=== PATIENT | female | born 1980 | race Caucasian/White ===

== ENCOUNTER 2021-10-29 10:46 | Outpatient (CLI) | payer BC ==
[2021-10-29 12:29] LABS: CLARITY,URINE CLEAR (Clear); COLOR,URINE YELLOW (Yellow); GLUCOSE, URINE NEGATIVE (Neg); KETONES,URINE NEGATIVE (Neg); LEUKOCYTE ESTERASE ,URINE NEGATIVE (Neg); NITRITES, URINE NEGATIVE (Neg); OCCULT BLOOD,URINE TRACE-INTACT (Neg); PROTEIN,URINE NEGATIVE (Neg); UROBILINOGEN,URINE 0.2 E.U/dL (0.2-1.0)
[2021-10-29 12:32] LABS: UA COLLECTION TYPE CLN CATCH MIDSTREAM
[2021-10-29 12:36] LABS: BACTERIA,URINE FEW /HPF (Neg); MUCUS STRANDS NONE SEEN /LPF (Neg); RBC,URINE 0-2 /HPF (0-2); SQUAMOUS EPITHELIAL CELL,UR FEW /LPF (FEW); WBC,URINE 0-4 /HPF (0-4)
[2021-10-29 12:47] LABS: BASOPHILS % (AUTO) 0.4 % (0-1); EOSINOPHILS # (AUTO) 0.1 X10'3 (0-0.9); EOSINOPHILS % (AUTO) 1.5 % (0-6); HEMATOCRIT 38.2 % (35.0-45.0); HEMOGLOBIN 12.7 g/dl (12.0-16.0); LYMPHOCYTES # (AUTO) 1.7 X10'3 (1.1-4.8); LYMPHOCYTES % (AUTO) 22.1 % (21-51); MEAN CORPUSCULAR HEMOGLOBIN 30.3 PG (27.0-31.0); MEAN CORPUSCULAR HGB CONC 33.2 g/dL (33.0-36.5); MEAN CORPUSCULAR VOLUME 91.4 FL (78-98); MEAN PLATELET VOLUME 9.1 FL (7.4-10.4); MONOCYTES # (AUTO) 0.6 X10'3 (0-0.9); MONOCYTES % (AUTO) 7.6 % (2-12); NEUTROPHILS # (AUTO) 5.2 X10'3 (1.8-7.7); NEUTROPHILS % (AUTO) 68.4 % (42-75); PLATELET COUNT 218 X10'3 (140-440); RED BLOOD COUNT 4.18 X10'6 (4.20-5.60); RED CELL DISTRIBUTION WIDTH 13.4 % (11.5-14.5); WHITE BLOOD COUNT 7.6 X10'3 (4.5-11.0)
[2021-10-29 13:15] LABS: ALANINE AMINOTRANSFERASE 28 U/L (12-78); ALBUMIN 4.2 G/DL (3.4-5.0); ALKALINE PHOSPHATASE 32 IU/L (46-116); ANION GAP 8 (8-16); ASPARTATE AMINO TRANSFERASE 19 U/L (10-37); BILIRUBIN,TOTAL 0.3 MG/DL (0.1-1.0); BLOOD UREA NITROGEN 16 MG/DL (7-18); BUN/CREATININE RATIO 18.6 (6.6-38.0); CALCIUM 8.7 MG/DL (8.5-10.1); CHLORIDE 104 MMOL/L (99-107); CHOL/HDL RATIO 2.5 (0.00-4.99); CHOLESTEROL 216 MG/DL (0-200); CREATININE 0.86 MG/DL (0.40-0.90); GLUCOSE 77 MG/DL (70-104); HDL CHOLESTEROL 87 MG/DL (35-60); LDL CHOLESTEROL 102 MG/DL (50-100); POTASSIUM 3.9 MMOL/L (3.5-5.1); SODIUM 139 MMOL/L (135-145); TOTAL CARBON DIOXIDE 27.1 MMOL/L (24-32); TOTAL PROTEIN 8.5 G/DL (6.4-8.2); TRIGLYCERIDES 106 MG/DL (20-135); eGFR 73 ML/MIN
[2021-10-29 14:04] LABS: H PYLORI ANTIBODY NEGATIVE (Neg)
== END 2021-10-29 23:59 | disposition home or self-care (01) ==
LOC: LAB 10:46
PROVIDERS: ATTEND Family Medicine
DX: Z00.01 Encounter for general adult medical examination with abnormal findings (principal); K21.9 Gastro-esophageal reflux disease without esophagitis
CPT/HCPCS: 36415; 80053; 80061; 81001; 84439; 84443; 85025; 86677

== ENCOUNTER 2021-10-29 10:54 | Outpatient (CLI) | payer BC ==
[2021-10-29 13:11] LABS: HEMOGLOBIN A1C 5.4 % (4.5-6.2)
[2021-10-29 13:48] LABS: MAGNESIUM 1.9 MG/DL (1.5-2.4)
[2021-10-30 10:30] LABS: ANTINUCLEAR ANTIBODIES Negative (Negative)
== END 2021-10-29 23:59 | disposition home or self-care (01) ==
LOC: LAB 10:54
PROVIDERS: ATTEND Nurse Practitioner
DX: R53.83 Other fatigue (principal); E55.9 Vitamin D deficiency, unspecified; D64.9 Anemia, unspecified; E53.9 Vitamin B deficiency, unspecified; R79.0 Abnormal level of blood mineral; Z83.2 Family history of diseases of the blood and blood-forming organs and certain disorders involving the immune mechanism
CPT/HCPCS: 36415; 82306; 82607; 82746; 83036; 83735; 85651; 86038; 86140

== ENCOUNTER 2021-12-22 08:59 | Day surgery (SDC) | payer BC ==
[~2021-12-22] VITALS: Ht 157.5 cm; Wt 54.5 kg
[2021-12-22 09:07] VITALS: BP 109/63
[2021-12-22] MEDS ORDERED: LIDOcaine Viscous 15ml cup ONE (09:34)
[2021-12-22] MEDS ORDERED: fentaNYL/PF 50MCG/1 ML 2ML syringe ONE (09:34)
[2021-12-22] MEDS ORDERED: MIDAZolam 1 MG/ML 5ML VIAL ONE (09:34)
[2021-12-22] MEDS ORDERED: diphenhydrAMINE 50 mg/ml inj ONE (09:36)
[2021-12-22] MEDS ORDERED: PANT40TA54 PO (09:44)
[2021-12-22] MEDS ORDERED: FAMO-128 PO (09:44)
[2021-12-22 10:59] VITALS: BP 111/63
[2021-12-22 11:09] VITALS: BP 105/62
[2021-12-22 11:19] VITALS: BP 105/62
[2021-12-22 11:29] VITALS: BP 104/65
== END 2021-12-22 11:35 | disposition home or self-care (01) ==
LOC: GI LAB 08:59
PROVIDERS: ATTEND Internal Medicine Gastroenterology
DX: R12 Heartburn (principal); K21.9 Gastro-esophageal reflux disease without esophagitis; K29.50 Unspecified chronic gastritis without bleeding
CPT/HCPCS: 43239; 99152; J1200; J2250; J3010; J7030; Z7512; A4620

== ENCOUNTER 2022-06-30 05:26 | Day surgery (SDC) | payer BC ==
[2022-06-25 14:21] LABS: CLARITY,URINE CLEAR (Clear); GLUCOSE, URINE NEGATIVE (Neg); KETONES,URINE NEGATIVE (Neg); LEUKOCYTE ESTERASE ,URINE NEGATIVE (Neg); NITRITES, URINE NEGATIVE (Neg); OCCULT BLOOD,URINE MODERATE (Neg); PROTEIN,URINE NEGATIVE (Neg); UROBILINOGEN,URINE 0.2 E.U/dL (0.2-1.0)
[2022-06-25 14:21] LABS: BASOPHILS # (AUTO) 0.1 X10'3 (0-0.2); BASOPHILS % (AUTO) 0.7 % (0-1); EOSINOPHILS # (AUTO) 0.1 X10'3 (0-0.9); EOSINOPHILS % (AUTO) 1.7 % (0-6); LYMPHOCYTES # (AUTO) 1.9 X10'3 (1.1-4.8); LYMPHOCYTES % (AUTO) 22.2 % (21-51); MEAN CORPUSCULAR HEMOGLOBIN 30.3 PG (27.0-31.0); MEAN CORPUSCULAR HGB CONC 33.3 g/dL (33.0-36.5); MEAN CORPUSCULAR VOLUME 91.1 FL (78-98); MEAN PLATELET VOLUME 8.4 FL (7.4-10.4); MONOCYTES # (AUTO) 0.5 X10'3 (0-0.9); MONOCYTES % (AUTO) 6.4 % (2-12); NEUTROPHILS # (AUTO) 5.9 X10'3 (1.8-7.7); PRE OP HEMATOCRIT 38.4 % (35.0-45.0); PRE OP HEMOGLOBIN 12.8 g/dL (12.0-16.0); PRE OP PLATELET COUNT 226 X10'3 (140-440); RED BLOOD COUNT 4.21 X10'6 (4.20-5.60); RED CELL DISTRIBUTION WIDTH 12.8 % (11.5-14.5)
[2022-06-25 14:25] LABS: UA COLLECTION TYPE CLN CATCH MIDSTREAM
[2022-06-25 14:26] LABS: COLOR,URINE STRAW (Yellow)
[2022-06-25 14:27] LABS: BACTERIA,URINE FEW /HPF (Neg); MUCUS STRANDS NONE SEEN /LPF (Neg); RBC,URINE 0-2 /HPF (0-2); SQUAMOUS EPITHELIAL CELL,UR FEW /LPF (FEW); WBC,URINE 0-4 /HPF (0-4)
[2022-06-25 14:38] LABS: ALBUMIN 4.2 G/DL (3.4-5.0); ALKALINE PHOSPHATASE 39 IU/L (46-116); BLOOD UREA NITROGEN 9 MG/DL (7-18); CALCIUM 9.4 MG/DL (8.5-10.1); CHLORIDE 105 MMOL/L (99-107); PRE OP ALT 27 U/L (30-65); PRE OP ANION GAP 7 (8-16); PRE OP AST 22 U/L (10-37); PRE OP BILIRUB, TOTAL 0.3 MG/DL (0.0-1.0); PRE OP GLUCOSE 83 MG/DL (70-104); PRE OP SODIUM 141 MMOL/L (135-145); TOTAL CARBON DIOXIDE 28.8 MMOL/L (24-32); TOTAL PROTEIN 8.3 G/DL (6.4-8.2); eGFR 69 ML/MIN
[2022-06-25 14:40] LABS: PRE OP POTASSIUM 3.3 MMOL/L (3.4-5.1)
[~2022-06-30] VITALS: Ht 157.5 cm; Wt 54.4 kg
[2022-06-30] VITALS (16 sets, daily range): BP systolic 85–107; BP diastolic 48–80
[~2022-06-30 05:26] MED LIST: ASCO100T12 PO; CHOL400T57 PO; FAMO-128 PO; PANT40TA54 PO; VITA400T10 PO; ZINC100T2 PO; ringers solution, lacted 1,000 ML IV SCH
[2022-06-30] MEDS ORDERED: famotidine 20mg tablet PO ONE (05:30)
[2022-06-30] MEDS ORDERED: ceFAZolin inj. 2,000 MG in dextrose 5%-water 100 ML IV ONE (05:30)
[2022-06-30] MEDS ORDERED: labetalol 20mg/4ml (5mg/ml) syringe IV PRN (09:45)
[2022-06-30] MEDS ORDERED: acetaminophen 1,000mg/100ml IV 100 ML IV PRN (09:45)
[2022-06-30] MEDS ORDERED: morphine 4 MG/ML inj SYRINge IV PRN (09:45)
[2022-06-30] MEDS ORDERED: sevoflurane 250ml liquid IH ONE (09:45)
[2022-06-30] MEDS ORDERED: hydrALAZINE 20mg/ml inj. IV PRN (09:45)
[2022-06-30] MEDS ORDERED: ringers solution, lacted 1,000 ML IV SCH (09:45)
[2022-06-30] MEDS ORDERED: morphine 2 MG/ML inj. syringe IV PRN (09:45)
[2022-06-30] MEDS ORDERED: proCHLORperazine 10 MG/2 ml inj IV PRN (09:45)
[2022-06-30] MEDS ORDERED: meperidine/PF 25mg/ml syringe IV PRN ×3 (09:45)
[2022-06-30] MEDS ORDERED: ondansetron/PF 4mg/2ml inj IV PRN (09:45)
[2022-06-30] MEDS ORDERED: ketorolac trometh. 30mg/ml inj. IV ONE (09:45)
[2022-06-30] MEDS ORDERED: midazolam 1 mg/ML 2ml injection ONE (09:52)
[2022-06-30] MEDS ORDERED: fentaNYL/PF 50MCG/1 ML 2ML syringe ONE (09:55)
[2022-06-30] MEDS ORDERED: BUPIVAcaine/PF 2.5 mg/ml (0.25%) 30ml vial ONE (10:06)
[2022-06-30] MEDS ORDERED: ondansetron/PF 4mg/2ml inj ONE (10:21)
[2022-06-30] MEDS ORDERED: LIDOcaine 2% (20mg/ml) 5ml vial ONE (10:21)
[2022-06-30] MEDS ORDERED: propofol inj 20 ML IV ONE (10:21)
[2022-06-30] MEDS ORDERED: dexamethasone sod phosphate 4mg/ml inj. ONE (10:21)
--- NOTE | 2022-06-30 10:44 | NUR ---
Received from OR via [facility], accompanied by Anesthesiologist DR PADILLA and report given by Anesthesiologist AND ASSISTANT CASE MANAGER. PT VERY DROWSY, NO S/S OF DISTRESS/DISCOMFORT, [place] DRSG COVERING UMBILICUS CDI. Addendum: 06/30/22 at 1054 by Ledy Dunn RN Amended: Links added.
--- NOTE | 2022-06-30 12:03 | NUR ---
PT UP AND DRESSED GETTING READY TO BE D/C'D AND BECAME NAUSEATED. 4 MG ZOFRAN GIVEN W/250 ML BOLUS OF LR. Addendum: 06/30/22 at 1217 by Ledy Dunn RN Amended: Links added.
--- NOTE | 2022-06-30 12:44 | NUR ---
NAUSEA RESOLVED, BP BACK TO BASELINE. PAIN IS MILD AND PT DECLINES INTERVENTIONS AT THIS TIME. PT STATES SHE FEELS MUCH BETTER AND IS READY TO GO HOME. D/C INSTRUCTIONS GIVEN AND GONE OVER W/PT WHO VERBALIZED UNDERSTANDING. PT D/CD TO HOME VIA W/C TO PRIVATE VEHICLE W/O INCIDENT. Addendum: 06/30/22 at 1253 by Ledy Dunn RN Amended: Links added.
== END 2022-06-30 12:44 | disposition home or self-care (01) ==
LOC: PAS 05:26
PROVIDERS: ATTEND Surgery
DX: K42.0 Umbilical hernia with obstruction, without gangrene (principal); K21.9 Gastro-esophageal reflux disease without esophagitis; Z79.899 Other long term (current) drug therapy; Z98.890 Other specified postprocedural states
CPT/HCPCS: 36415; 49587; 80053; 81001; 82948; 85025; J0690; J1100; J2250; J2405; J2704; J3010; J3490; J7030; J7060; J7120; Z7506; Z7512; A4215; A4618; A6449; A7000

== ENCOUNTER 2022-11-25 10:17 | Outpatient (CLI) | payer BC ==
[~2022-11-25 10:17] MED LIST changes: -ringers solution, lacted 1,000 ML IV SCH
== END 2022-11-25 23:59 | disposition home or self-care (01) ==
LOC: LAB 10:17
PROVIDERS: ATTEND Nurse Practitioner Family
DX: J30.1 Allergic rhinitis due to pollen (principal)
CPT/HCPCS: 36415; 86003

== ENCOUNTER 2023-03-05 13:47 | Inpatient (IN) | payer BC ==
[~2023-03-05] VITALS: Ht 157.5 cm; Wt 51.0 kg
[2023-03-05] MEDS ORDERED: normal saline 1000ml 1,000 ML IV STA (14:11)
[2023-03-05] MEDS ORDERED: ondansetron/PF 4mg/2ml inj IV STA (14:11)
[2023-03-05] MEDS ORDERED: morphine 2 MG/ML inj. syringe IV STA (14:21)
[2023-03-05 14:26] LABS: EOSINOPHILS % (AUTO) 0 % (0-6); HEMATOCRIT 36.1 % (35.0-45.0); HEMOGLOBIN 11.8 g/dl (12.0-16.0); LYMPHOCYTES # (AUTO) 0.2 X10'3 (1.1-4.8); MONOCYTES # (AUTO) 0.3 X10'3 (0-0.9)
[2023-03-05 14:27] LABS: BASOPHILS % (AUTO) 0.3 % (0-1); MEAN CORPUSCULAR HEMOGLOBIN 30.2 PG (27.0-31.0); MEAN CORPUSCULAR HGB CONC 32.8 g/dL (33.0-36.5); MEAN CORPUSCULAR VOLUME 92.2 FL (78-98); MEAN PLATELET VOLUME 8.9 FL (7.4-10.4); MONOCYTES % (AUTO) 1.8 % (2-12); NEUTROPHILS # (AUTO) 15.4 X10'3 (1.8-7.7); NEUTROPHILS % (AUTO) 96.9 % (42-75); PLATELET COUNT 136 X10'3 (140-440); RED BLOOD COUNT 3.92 X10'6 (4.20-5.60); RED CELL DISTRIBUTION WIDTH 13.6 % (11.5-14.5); WHITE BLOOD COUNT 15.9 X10'3 (4.5-11.0)
[2023-03-05 14:41] LABS: ALANINE AMINOTRANSFERASE 30 U/L (12-78); ALBUMIN 3.5 G/DL (3.4-5.0); ALBUMIN/GLOBULIN RATIO 0.9 (1.1-1.5); ALKALINE PHOSPHATASE 41 IU/L (46-116); ANION GAP 11 (8-16); ASPARTATE AMINO TRANSFERASE 22 U/L (10-37); BILIRUBIN,TOTAL 0.9 MG/DL (0.1-1.0); BLOOD UREA NITROGEN 9 MG/DL (7-18); CALCIUM 8.8 MG/DL (8.5-10.1); CHLORIDE 101 MMOL/L (99-107); CREATININE 1.12 MG/DL (0.40-0.90); GLUCOSE 129 MG/DL (70-104); LIPASE < 50 U/L (73-393); POTASSIUM 3.4 MMOL/L (3.5-5.1); SODIUM 136 MMOL/L (135-145); TOTAL CARBON DIOXIDE 24.3 MMOL/L (24-32); TOTAL PROTEIN 7.3 G/DL (6.4-8.2); eGFR 54 ML/MIN
[2023-03-05] MEDS ORDERED: normal saline 1000ml 1,000 ML IV ONE ×2 (14:50)
[2023-03-05] MEDS ORDERED: LORazepam 2 mg/ml vial IV ONE (14:50)
[2023-03-05] MEDS ORDERED: morphine 4 MG/ML inj SYRINge IV ONE (14:50)
[2023-03-05] MEDS ORDERED: iohexol 350MG/ML 100ml bottle IV ONE (14:51)
[2023-03-05] MEDS ORDERED: azithromycin/NS 500mg/250ml 250 ML IV ONE (15:55)
[2023-03-05] MEDS ORDERED: CefTRIAXone 2gm/D5W 50ml BAG 50 ML IV ONE (16:00)
[2023-03-05] MEDS ORDERED: ipratropium/albuterol 3ml nebule NEB ONE (16:05)
[2023-03-05] MEDS ORDERED: albuterol 2.5 MG/3 ML nebule NEB ONE (16:05)
[2023-03-05] MEDS ORDERED: methylPREDNISolone sod succ 125mg/2ml vial IV ONE (16:10)
[2023-03-05] MEDS ORDERED: albuterol 2.5 MG/3 ML nebule NEB PRN (16:55)
[2023-03-05] MEDS ORDERED: magnesium 4gm in 100ml NS 100 ML IV PRN (16:55)
[2023-03-05] MEDS ORDERED: magnesium Cl slow-release 64mg tablet PO PRN (16:55)
[2023-03-05] MEDS ORDERED: magnesium 2GM in 50ml NS 50 ML IV PRN (16:55)
[2023-03-05] MEDS: normal saline 1000ml 1,000 ML IV SCH (16:55)
[2023-03-05] MEDS ORDERED: potassium Cl 20 mEq SR tablet PO PRN ×2 (16:55)
[2023-03-05] MEDS ORDERED: potassium Cl 40MEQ/1/2NS 520ml 520 ML IV PRN (16:55)
[2023-03-05] MEDS ORDERED: normal saline 500ml IV soln 1,000 ML IV ONE (18:05)
[2023-03-05 19:17] LABS: LACTATE DEHYDROGENASE 175 U/L (81-234)
[2023-03-05 19:19] LABS: ABG BASE EXCESS -9.2 mmol/L (-2.0-2.0); ABG HCO3 14.8 mmol/L (22.0-26.0); ABG OXYGEN SATURATION 89.7 % (94-97); ABG PCO2 (T) 26.8 mmHg (32.0-45.0); ABG PO2 (T) 59.6 mmHg (75.0-100.0); ALLEN'S TEST POSITIVE; FCOHb 0.3 % (0.0-3.9); FMetHb 0.4 % (0.0-1.5); FO2Hb 89.1 % (94-97); PATIENT TEMPERATURE 37.1; TOTAL HEMOGLOBIN 10.8 G/dl (12.0-16.0)
[2023-03-05] MEDS: enoxaparin 40mg/0.4ml syringe SQ SCH (20:09)
[2023-03-05] MEDS: morphine 2 MG/ML inj. syringe IV PRN (20:10)
[2023-03-05] MEDS: HYDROcodone/acetaminophen 5mg/325mg tablet PO PRN (20:10)
[2023-03-05] MEDS ORDERED: normal saline 1000ML IV soln IVB ONE (20:20)
[2023-03-05 22:50] LABS: URINE HCG NEGATIVE (NEG)
[2023-03-05 22:58] LABS: CLARITY,URINE CLEAR (Clear); COLOR,URINE YELLOW (Yellow); GLUCOSE, URINE NEGATIVE (Neg); KETONES,URINE TRACE mg/dl (Neg); LEUKOCYTE ESTERASE ,URINE NEGATIVE (Neg); NITRITES, URINE NEGATIVE (Neg); OCCULT BLOOD,URINE TRACE-INTACT (Neg); PROTEIN,URINE NEGATIVE (Neg); UROBILINOGEN,URINE 0.2 E.U/dL (0.2-1.0)
[2023-03-05 23:02] LABS: UA COLLECTION TYPE CLN CATCH MIDSTREAM
[2023-03-05 23:09] LABS: BACTERIA,URINE FEW /HPF (Neg); SQUAMOUS EPITHELIAL CELL,UR MANY /LPF (FEW); WBC,URINE 0-4 /HPF (0-4)
[2023-03-05 23:10] LABS: RBC,URINE 0-2 /HPF (0-2)
[2023-03-06] MEDS: morphine 2 MG/ML inj. syringe IV PRN ×2 (00:38→05:12)
[2023-03-06] MEDS: ondansetron/PF 4mg/2ml inj IV PRN (00:38)
[2023-03-06] MEDS: guaiFENesin/DM 10ml UD oral syrup PO PRN ×2 (00:44→22:25)
[2023-03-06] MEDS: NORepinephrine 8mg/ 250ml NS 250 ML IV SCH (02:35)
[2023-03-06 02:56] LABS: BASOPHILS % (AUTO) 0.1 % (0-1); EOSINOPHILS % (AUTO) 0 % (0-6); HEMATOCRIT 28.1 % (35.0-45.0); HEMOGLOBIN 9.1 g/dl (12.0-16.0); LYMPHOCYTES # (AUTO) 0.4 X10'3 (1.1-4.8); LYMPHOCYTES % (AUTO) 2.4 % (21-51); MEAN CORPUSCULAR HEMOGLOBIN 29.8 PG (27.0-31.0); MEAN CORPUSCULAR HGB CONC 32.5 g/dL (33.0-36.5); MEAN CORPUSCULAR VOLUME 91.8 FL (78-98); MEAN PLATELET VOLUME 9.2 FL (7.4-10.4); MONOCYTES # (AUTO) 0.4 X10'3 (0-0.9); MONOCYTES % (AUTO) 2.4 % (2-12); NEUTROPHILS # (AUTO) 14.6 X10'3 (1.8-7.7); NEUTROPHILS % (AUTO) 95.1 % (42-75); PLATELET COUNT 93 X10'3 (140-440); RED BLOOD COUNT 3.06 X10'6 (4.20-5.60); RED CELL DISTRIBUTION WIDTH 13.9 % (11.5-14.5); WHITE BLOOD COUNT 15.4 X10'3 (4.5-11.0)
[2023-03-06] MEDS: normal saline 1000ml 1,000 ML IV SCH ×4 (03:03→22:55)
[2023-03-06 03:11] LABS: ALANINE AMINOTRANSFERASE 17 U/L (12-78); ALBUMIN 2.1 G/DL (3.4-5.0); ALBUMIN/GLOBULIN RATIO 0.8 (1.1-1.5); ALKALINE PHOSPHATASE 15 IU/L (46-116); ANION GAP 15 (8-16); ASPARTATE AMINO TRANSFERASE 12 U/L (10-37); BILIRUBIN,TOTAL 0.3 MG/DL (0.1-1.0); BLOOD UREA NITROGEN 5 MG/DL (7-18); BUN/CREATININE RATIO 5.2 (10.0-20.0); CALCIUM 6.4 MG/DL (8.5-10.1); CHLORIDE 110 MMOL/L (99-107); CREATININE 0.96 MG/DL (0.40-0.90); GLUCOSE 167 MG/DL (70-104); POTASSIUM 3.1 MMOL/L (3.5-5.1); SODIUM 140 MMOL/L (135-145); TOTAL CARBON DIOXIDE 15.4 MMOL/L (24-32); TOTAL PROTEIN 4.9 G/DL (6.4-8.2); eGFR 64 ML/MIN
[2023-03-06 03:56] LABS: TOTAL CELLS COUNTED 100
[2023-03-06 03:57] LABS: ANISOCYTOSIS FEW; ELLIPTOCYTES FEW; PLATELET ESTIMATE DECREASED
[2023-03-06] MEDS: HYDROcodone/acetaminophen 5mg/325mg tablet PO PRN (04:36)
[2023-03-06] MEDS: acetaminophen 325mg tablet PO PRN ×2 (05:43→21:22)
--- NOTE | 2023-03-06 05:58 | NUR ---
pt placed on heated hi flow nasal cannula 20L at 50%
[2023-03-06] MEDS ORDERED: pantoprazole 40mg Tablet.DR PO SCH (07:30)
[2023-03-06] MEDS: pantoprazole 40mg Tablet.DR PO SCH (07:58)
[2023-03-06] MEDS: ketorolac trometh. 30mg/ml inj. IV PRN ×3 (09:13→22:25)
[2023-03-06 09:30] LABS: ALANINE AMINOTRANSFERASE 19 U/L (12-78); ALBUMIN 2.4 G/DL (3.4-5.0); ALBUMIN/GLOBULIN RATIO 0.7 (1.1-1.5); ALKALINE PHOSPHATASE 22 IU/L (46-116); ANION GAP 12 (8-16); ASPARTATE AMINO TRANSFERASE 15 U/L (10-37); BILIRUBIN,TOTAL 0.2 MG/DL (0.1-1.0); BLOOD UREA NITROGEN 7 MG/DL (7-18); BUN/CREATININE RATIO 7.1 (10.0-20.0); CALCIUM 7.6 MG/DL (8.5-10.1); CHLORIDE 109 MMOL/L (99-107); CREATININE 0.99 MG/DL (0.40-0.90); GLUCOSE 169 MG/DL (70-104); POTASSIUM 3.8 MMOL/L (3.5-5.1); SODIUM 139 MMOL/L (135-145); TOTAL CARBON DIOXIDE 18.5 MMOL/L (24-32); TOTAL PROTEIN 5.7 G/DL (6.4-8.2); eGFR 62 ML/MIN
[2023-03-06 09:33] LABS: BASOPHILS # (AUTO) 0.1 X10'3 (0-0.2); BASOPHILS % (AUTO) 0.2 % (0-1); EOSINOPHILS % (AUTO) 0.1 % (0-6); HEMATOCRIT 31.9 % (35.0-45.0); HEMOGLOBIN 10.6 g/dl (12.0-16.0); LYMPHOCYTES # (AUTO) 0.5 X10'3 (1.1-4.8); LYMPHOCYTES % (AUTO) 1.9 % (21-51); MEAN CORPUSCULAR HEMOGLOBIN 30.2 PG (27.0-31.0); MEAN CORPUSCULAR HGB CONC 33.1 g/dL (33.0-36.5); MEAN CORPUSCULAR VOLUME 91.3 FL (78-98); MEAN PLATELET VOLUME 9.3 FL (7.4-10.4); MONOCYTES # (AUTO) 0.9 X10'3 (0-0.9); MONOCYTES % (AUTO) 3.5 % (2-12); NEUTROPHILS % (AUTO) 94.3 % (42-75); PLATELET COUNT 130 X10'3 (140-440); RED CELL DISTRIBUTION WIDTH 13.8 % (11.5-14.5)
[2023-03-06 09:38] LABS: WHITE BLOOD COUNT 26.6 X10'3 (4.5-11.0)
[2023-03-06] MEDS ORDERED: VANCOMYCIN 1,500MG inj. 1,500 MG in normal saline 500ml IV soln 300 ML IV ONE (09:50)
[2023-03-06] MEDS ORDERED: VANCOmycin 1250MG/NS 250ml Bag 250 ML IV ONE (10:05)
--- NOTE | 2023-03-06 14:36 | NUR ---
PT. C/O BACK DISCOMFORT OFFERED PAIN MEDS ORDERED BUT WANTS TO WAIT UNTIL TORADOL CAN BE GIVEN WHICH IS @ 9148
[2023-03-06] MEDS ORDERED: CefTRIAXone 2gm/D5W 50ml BAG 50 ML IV SCH (16:00)
[2023-03-06] MEDS ORDERED: azithromycin/NS 500mg/250ml 250 ML IV SCH (16:00)
[2023-03-06 18:00] VITALS: BP 95/60
[2023-03-06 19:00] VITALS: BP 92/58
[2023-03-06 20:00] VITALS: BP 101/62
[2023-03-06] MEDS ORDERED: famotidine 20mg tablet PO PRN ×2 (20:40→21:15)
[2023-03-06 21:00] VITALS: BP 109/64
[2023-03-06] MEDS: enoxaparin 40mg/0.4ml syringe SQ SCH (21:18)
[2023-03-06] MEDS: vancomycin/NS 1 GM ADD-VANTAGE 250 ML IV SCH (21:18)
[2023-03-06 22:00] VITALS: BP 112/55
[2023-03-06] MEDS ORDERED: VANCOMYCIN LEVEL IV ONE (22:30)
[2023-03-06 23:00] VITALS: BP 93/47
[2023-03-06] MEDS: CefTRIAXone 2gm/D5W 50ml BAG 50 ML IV SCH (23:52)
[2023-03-07] VITALS (19 sets, daily range): BP systolic 84–107; BP diastolic 7–75
[2023-03-07] MEDS: azithromycin/NS 500mg/250ml 250 ML IV SCH (00:50)
[2023-03-07] MEDS: normal saline 1000ml 1,000 ML IV SCH ×3 (00:50→07:27)
[2023-03-07] MEDS: morphine 2 MG/ML inj. syringe IV PRN ×3 (01:07→17:53)
[2023-03-07 03:08] LABS: BASOPHILS % (AUTO) 0.1 % (0-1); EOSINOPHILS % (AUTO) 0.1 % (0-6); HEMATOCRIT 29.5 % (35.0-45.0); HEMOGLOBIN 9.8 g/dl (12.0-16.0); LYMPHOCYTES # (AUTO) 0.7 X10'3 (1.1-4.8); LYMPHOCYTES % (AUTO) 4.1 % (21-51); MEAN CORPUSCULAR HEMOGLOBIN 30.1 PG (27.0-31.0); MEAN CORPUSCULAR HGB CONC 33.1 g/dL (33.0-36.5); MEAN CORPUSCULAR VOLUME 90.9 FL (78-98); MEAN PLATELET VOLUME 9.5 FL (7.4-10.4); MONOCYTES # (AUTO) 0.6 X10'3 (0-0.9); MONOCYTES % (AUTO) 3.3 % (2-12); NEUTROPHILS # (AUTO) 16.4 X10'3 (1.8-7.7); NEUTROPHILS % (AUTO) 92.4 % (42-75); PLATELET COUNT 113 X10'3 (140-440); RED BLOOD COUNT 3.25 X10'6 (4.20-5.60); RED CELL DISTRIBUTION WIDTH 14.3 % (11.5-14.5); WHITE BLOOD COUNT 17.7 X10'3 (4.5-11.0)
[2023-03-07 03:20] LABS: ALANINE AMINOTRANSFERASE 17 U/L (12-78); ALBUMIN/GLOBULIN RATIO 0.6 (1.1-1.5); ALKALINE PHOSPHATASE 28 IU/L (46-116); ANION GAP 9 (8-16); ASPARTATE AMINO TRANSFERASE 15 U/L (10-37); BILIRUBIN,TOTAL 0.2 MG/DL (0.1-1.0); BLOOD UREA NITROGEN 8 MG/DL (7-18); BUN/CREATININE RATIO 9.3 (10.0-20.0); CALCIUM 7.7 MG/DL (8.5-10.1); CHLORIDE 110 MMOL/L (99-107); CREATININE 0.86 MG/DL (0.40-0.90); GLUCOSE 97 MG/DL (70-104); POTASSIUM 3.7 MMOL/L (3.5-5.1); SODIUM 140 MMOL/L (135-145); TOTAL CARBON DIOXIDE 20.9 MMOL/L (24-32); TOTAL PROTEIN 5.3 G/DL (6.4-8.2); eGFR 73 ML/MIN
[2023-03-07] MEDS: guaiFENesin/DM 10ml UD oral syrup PO PRN ×2 (03:24→08:07)
[2023-03-07 04:05] LABS: PLATELET ESTIMATE DECREASED; TOTAL CELLS COUNTED 100
[2023-03-07 04:06] LABS: BURR CELLS 1+; POIKILOCYTOSIS FEW
[2023-03-07] MEDS: NORepinephrine 8mg/ 250ml NS 250 ML IV SCH (04:39)
--- NOTE | 2023-03-07 07:31 | NUR ---
medication re-assessments and administration not done by previous shift for the following Torodol re-assessment 03/06 1013 03/06 1734 Vanco administration 03/06 2230 NS administration 03/06 1255 03/06 2255 03/06 1650 03/07 0050
--- NOTE | 2023-03-07 07:31 | NUR ---
Patient in room ICU 2040. I have received report from Loan AVENDAÑO and had the opportunity to ask questions and assume patient care.
[2023-03-07] MEDS: pantoprazole 40mg Tablet.DR PO SCH (08:07)
[2023-03-07] MEDS: ketorolac trometh. 30mg/ml inj. IV PRN ×3 (08:14→20:51)
[2023-03-07] MEDS ORDERED: docusate sod 100mg capsule PO ONE (10:05)
[2023-03-07] MEDS: vancomycin/NS 1 GM ADD-VANTAGE 250 ML IV SCH (10:33)
[2023-03-07] MEDS: acetaminophen 325mg tablet PO PRN (10:33)
[2023-03-07] MEDS: HALLS - SOOTHE MENTHOL 1.8 MG cough drop LOZENGE MM PRN (10:33)
--- NOTE | 2023-03-07 10:54 | NUR ---
called Dr. Boyer due to vanco being D/C'ed with the current 10am dose running. He stated to stop the vanco and switch to zyvox
--- NOTE | 2023-03-07 11:22 | NUR ---
Initial: Pt admit DX severe sepsis, septic shock, RLL PNA, and acute respiratory failure per EMR. PO 25% first documented meal WB this AM; per at rounds this AM bringing food from outside which pt is eating so continuing to encourage outside foods. Pt initially requiring HFNC now down to 5L NC per EMR. LBM 03/07 to start stool softener for reported feelings of constipation per RN at rounds. Will monitor for further PO trends and nutrition intervention needs this admit. Rec: 1. continue regular diet; encourage PO- food from outside per pt preference 2. monitor PO trends for ONS needs 3. routine bowel care 4. scaled wt this admit; subsequent weekly wt Addendum: 03/07/23 at [address] Amended: Links added.
[2023-03-07] MEDS: linezolid 600mg/300ml PREMIX 300 ML IV SCH ×2 (11:47→20:52)
[2023-03-07] MEDS: ondansetron/PF 4mg/2ml inj IV PRN (17:08)
[2023-03-07] MEDS: HYDROcodone/acetaminophen 5mg/325mg tablet PO PRN (17:08)
--- NOTE | 2023-03-07 18:06 | NUR ---
Problems reprioritized. Patient report given, questions answered & plan of care reviewed with Loan AVENDAÑO.
--- NOTE | 2023-03-07 18:45 | NUR ---
Pt A/O in NAD, at bedside. Resp sl. labored with mild purse-lip breathing noted with speech and activity. VSS
--- NOTE | 2023-03-07 19:00 | NUR ---
Received report from software controls engineerKATERYNA Cates. Patient to follow shortly.
--- NOTE | 2023-03-07 19:02 | NUR ---
Report called to KATERYNA Muro on Tele. Opportunity for questions provided. All questions answered. Verbalizes understanding of info given.
--- NOTE | 2023-03-07 19:25 | NUR ---
Transferred to tele via WC with Tele monitor, RN, LONNIE, Madelyn and personal belongings.
--- NOTE | 2023-03-07 19:30 | NUR ---
Patient arrived to floor via bed from [facility] accompanied by her and all of patients belongings. A&O, in no pain or distress at this time.
[2023-03-07] MEDS: docusate sod 100mg capsule PO SCH (20:57)
[2023-03-07] MEDS: enoxaparin 40mg/0.4ml syringe SQ SCH (21:02)
[2023-03-07] MEDS ORDERED: VANCOMYCIN LEVEL IV ONE (21:30)
[2023-03-07] MEDS: temazepam 15mg capsule PO PRN (21:57)
[2023-03-07] MEDS: CefTRIAXone 2gm/D5W 50ml BAG 50 ML IV SCH (23:15)
[2023-03-08] VITALS (8 sets, daily range): BP systolic 90–98; BP diastolic 60–74
--- NOTE | 2023-03-08 | NUR ---
2nd set of VS taken around 2330. BP was lower at 84/51, HR 78. Also PIV to LAC infiltrated. New PIV started to RAC and 250 ml bolus infused. Retake of BP was 96/62, HR 83.
[2023-03-08] MEDS: HYDROcodone/acetaminophen 5mg/325mg tablet PO PRN ×3 (00:01→16:51)
[2023-03-08] MEDS: azithromycin/NS 500mg/250ml 250 ML IV SCH (00:49)
[2023-03-08] MEDS: ketorolac trometh. 30mg/ml inj. IV PRN ×4 (03:05→22:06)
[2023-03-08] MEDS: linezolid 600mg/300ml PREMIX 300 ML IV SCH ×2 (04:00→16:50)
--- NOTE | 2023-03-08 04:00 | NUR ---
Did not administer the 0400 dose of zyvox as the previous bag had only just recently finished infusing d/t infiltration and other Abx to give.
[2023-03-08 06:19] LABS: BASOPHILS % (AUTO) 0.1 % (0-1); EOSINOPHILS # (AUTO) 0.1 X10'3 (0-0.9); EOSINOPHILS % (AUTO) 0.3 % (0-6); HEMATOCRIT 29.8 % (35.0-45.0); HEMOGLOBIN 9.7 g/dl (12.0-16.0); LYMPHOCYTES # (AUTO) 0.8 X10'3 (1.1-4.8); LYMPHOCYTES % (AUTO) 4.2 % (21-51); MEAN CORPUSCULAR HEMOGLOBIN 29.6 PG (27.0-31.0); MEAN CORPUSCULAR HGB CONC 32.6 g/dL (33.0-36.5); MEAN CORPUSCULAR VOLUME 90.7 FL (78-98); MEAN PLATELET VOLUME 8.9 FL (7.4-10.4); MONOCYTES # (AUTO) 1.1 X10'3 (0-0.9); MONOCYTES % (AUTO) 5.5 % (2-12); NEUTROPHILS # (AUTO) 17.5 X10'3 (1.8-7.7); NEUTROPHILS % (AUTO) 89.9 % (42-75); PLATELET COUNT 137 X10'3 (140-440); RED BLOOD COUNT 3.28 X10'6 (4.20-5.60); RED CELL DISTRIBUTION WIDTH 14.3 % (11.5-14.5); WHITE BLOOD COUNT 19.4 X10'3 (4.5-11.0)
[2023-03-08 06:50] LABS: ALANINE AMINOTRANSFERASE 16 U/L (12-78); ALBUMIN 1.8 G/DL (3.4-5.0); ALBUMIN/GLOBULIN RATIO 0.5 (1.1-1.5); ALKALINE PHOSPHATASE 51 IU/L (46-116); ANION GAP 8 (8-16); ASPARTATE AMINO TRANSFERASE 17 U/L (10-37); BILIRUBIN,TOTAL 0.1 MG/DL (0.1-1.0); BLOOD UREA NITROGEN 9 MG/DL (7-18); BUN/CREATININE RATIO 11.4 (10.0-20.0); CALCIUM 7.9 MG/DL (8.5-10.1); CHLORIDE 106 MMOL/L (99-107); CREATININE 0.79 MG/DL (0.40-0.90); GLUCOSE 92 MG/DL (70-104); POTASSIUM 3.5 MMOL/L (3.5-5.1); SODIUM 136 MMOL/L (135-145); TOTAL PROTEIN 5.4 G/DL (6.4-8.2); eGFR 81 ML/MIN
--- NOTE | 2023-03-08 06:50 | NUR ---
Problems reprioritized. Patient report given, questions answered & plan of care reviewed with Angi AVENDAÑO.
--- NOTE | 2023-03-08 06:56 | NUR ---
Patient in room PCU 3021. I have received report from katerin ramirez and had the opportunity to ask questions and assume patient care.
[2023-03-08] MEDS: docusate sod 100mg capsule PO SCH ×2 (08:51→22:04)
[2023-03-08] MEDS: pantoprazole 40mg Tablet.DR PO SCH (08:51)
[2023-03-08] MEDS ORDERED: furosemide 20MG tablet PO ONE ×2 (09:45→16:40)
[2023-03-08] MEDS ORDERED: iohexol 300mg/ml 100ml inj. ONE (10:11)
--- NOTE | 2023-03-08 14:43 | NUR ---
PER DR BRYAN HOLD LASIX UNTIL BP COMES UP, RECHECK AT 1600 AND CALL HIM WITH RESULTS
--- NOTE | 2023-03-08 16:38 | NUR ---
NOTIFIED DR BRYAN RE: BP 98/66. HE STATES TO DECREASE LASIX TO 10MG AND GIVE ONE TIME DOSE.
[2023-03-08] MEDS: ondansetron/PF 4mg/2ml inj IV PRN (18:40)
--- NOTE | 2023-03-08 18:45 | NUR ---
Problems reprioritized. Patient report given, questions answered & plan of care reviewed with JAY AVENDAÑO.
--- NOTE | 2023-03-08 18:47 | NUR ---
Patient in room PCU 3021. I have received report from Angi AVENDAÑO and had the opportunity to ask questions and assume patient care.
[2023-03-08] MEDS: morphine 2 MG/ML inj. syringe IV PRN (18:57)
[2023-03-08] MEDS: temazepam 15mg capsule PO PRN (22:05)
[2023-03-08] MEDS: enoxaparin 40mg/0.4ml syringe SQ SCH (22:05)
[2023-03-08] MEDS: guaiFENesin/DM 10ml UD oral syrup PO PRN ×2 (22:15)
[2023-03-09] MEDS: CefTRIAXone 2gm/D5W 50ml BAG 50 ML IV SCH (00:14)
[2023-03-09] MEDS: azithromycin/NS 500mg/250ml 250 ML IV SCH (00:50)
[2023-03-09] MEDS: linezolid 600mg/300ml PREMIX 300 ML IV SCH ×2 (04:15→16:00)
[2023-03-09 04:30] VITALS: BP 102/65
[2023-03-09] MEDS: ketorolac trometh. 30mg/ml inj. IV PRN ×2 (04:54→11:10)
[2023-03-09] MEDS: guaiFENesin/DM 10ml UD oral syrup PO PRN (04:54)
[2023-03-09 06:06] VITALS: BP 105/57
--- NOTE | 2023-03-09 06:50 | NUR ---
Problems reprioritized. Patient report given, questions answered & plan of care reviewed with Paulo Carrero.
[2023-03-09] MEDS ORDERED: furosemide 20MG tablet PO ONE ×3 (08:10→10:25)
[2023-03-09 09:25] LABS: BASOPHILS % (AUTO) 0.1 % (0-1); EOSINOPHILS # (AUTO) 0.1 X10'3 (0-0.9); EOSINOPHILS % (AUTO) 0.7 % (0-6); HEMATOCRIT 29.7 % (35.0-45.0); HEMOGLOBIN 9.8 g/dl (12.0-16.0); LYMPHOCYTES # (AUTO) 0.8 X10'3 (1.1-4.8); LYMPHOCYTES % (AUTO) 7.5 % (21-51); MEAN CORPUSCULAR HEMOGLOBIN 29.8 PG (27.0-31.0); MEAN CORPUSCULAR HGB CONC 33.1 g/dL (33.0-36.5); MEAN CORPUSCULAR VOLUME 90.1 FL (78-98); MEAN PLATELET VOLUME 8.5 FL (7.4-10.4); MONOCYTES # (AUTO) 0.9 X10'3 (0-0.9); MONOCYTES % (AUTO) 8.3 % (2-12); NEUTROPHILS # (AUTO) 9.4 X10'3 (1.8-7.7); NEUTROPHILS % (AUTO) 83.4 % (42-75); PLATELET COUNT 165 X10'3 (140-440); RED CELL DISTRIBUTION WIDTH 14.3 % (11.5-14.5); WHITE BLOOD COUNT 11.3 X10'3 (4.5-11.0)
[2023-03-09 09:42] LABS: ALANINE AMINOTRANSFERASE 12 U/L (12-78); ALBUMIN 1.8 G/DL (3.4-5.0); ALBUMIN/GLOBULIN RATIO 0.5 (1.1-1.5); ALKALINE PHOSPHATASE 46 IU/L (46-116); ANION GAP 6 (8-16); ASPARTATE AMINO TRANSFERASE 19 U/L (10-37); BILIRUBIN,TOTAL 0.2 MG/DL (0.1-1.0); BLOOD UREA NITROGEN 6 MG/DL (7-18); BUN/CREATININE RATIO 7.8 (10.0-20.0); CALCIUM 8.3 MG/DL (8.5-10.1); CHLORIDE 106 MMOL/L (99-107); CREATININE 0.77 MG/DL (0.40-0.90); GLUCOSE 101 MG/DL (70-104); POTASSIUM 3.1 MMOL/L (3.5-5.1); SODIUM 138 MMOL/L (135-145); TOTAL CARBON DIOXIDE 26.5 MMOL/L (24-32); TOTAL PROTEIN 5.6 G/DL (6.4-8.2); eGFR 83 ML/MIN
[2023-03-09] MEDS: pantoprazole 40mg Tablet.DR PO SCH (09:53)
[2023-03-09] MEDS: morphine 2 MG/ML inj. syringe IV PRN (09:53)
[2023-03-09] MEDS: docusate sod 100mg capsule PO SCH ×2 (09:53→23:04)
[2023-03-09] MEDS: LIDOcaine 5% patch TP SCH (10:02)
[2023-03-09 10:18] LABS: PLATELET ESTIMATE NORMAL; TOTAL CELLS COUNTED 100
[2023-03-09 10:20] LABS: ELLIPTOCYTES FEW
[2023-03-09] MEDS ORDERED: potassium Cl 20 mEq SR tablet PO PRN ×3 (10:20→10:30)
[2023-03-09] MEDS ORDERED: magnesium 2GM in 50ml NS 50 ML IV PRN (10:20)
[2023-03-09] MEDS ORDERED: magnesium 4gm in 100ml NS 100 ML IV PRN (10:20)
[2023-03-09] MEDS ORDERED: magnesium Cl slow-release 64mg tablet PO PRN ×2 (10:20→10:30)
[2023-03-09] MEDS ORDERED: potassium Cl 40MEQ/1/2NS 520ml 520 ML IV PRN (10:20)
[2023-03-09] MEDS: potassium Cl 20 mEq SR tablet PO PRN ×3 (11:09→23:04)
[2023-03-09 11:11] VITALS: BP 105/62
[2023-03-09] MEDS: ondansetron/PF 4mg/2ml inj IV PRN (11:12)
[2023-03-09] MEDS: cyclobenzaprine 10mg tablet PO PRN ×2 (13:28→23:04)
[2023-03-09] MEDS: HYDROmorphone 1 mg/ml syringe IV PRN ×3 (13:28→23:05)
--- NOTE | 2023-03-09 14:22 | NUR ---
Per EMR pt receiving IV Linezolid. While heading to see patient RN requested RD not wake pt up if she was sleeping. Upon arrival to the room pt had an eye mask on though verbally requested RD come back at another time. Written low tyramine nutrition therapy education with RD contact information provided to patient's SO. Will f/u at another time for verbal education and to inquire about food preferences in hopes of optimizing PO intake as pt documented to be refusing all meals with the exception of 25% PO intake of first meal (breakfast 03/07). Per verbal d/w RN patient is in a ton of back pain, which is likely impacting PO intake. Per EMR pt documented with 05/08 pain. Will continue to follow closely. Addendum: 03/09/23 at [address] Amended: Links added.
--- NOTE | 2023-03-09 15:42 | NUR ---
PT 1515 VITAL SIGNS NOT TAKEN PT FINALLY GOT TO SLEEP.
[2023-03-09 18:00] VITALS: BP 96/60
--- NOTE | 2023-03-09 18:00 | NUR ---
Patient in room PCU 3021. I have received report from Paulo AVENDAÑO and had the opportunity to ask questions and assume patient care.
[2023-03-09] MEDS: acetaminophen 325mg tablet PO PRN (19:10)
[2023-03-09] MEDS: HYDROcodone/acetaminophen 5mg/325mg tablet PO PRN (19:10)
[2023-03-09] MEDS: K and/or MAG REPLACEMENT MC SCH (20:00)
[2023-03-09] MEDS: HYDROmorphone inj. 0.5 MG/0.5 ML DISP.SYRIN IV PRN (20:14)
[2023-03-09 22:00] VITALS: BP 105/60
[2023-03-09] MEDS: enoxaparin 40mg/0.4ml syringe SQ SCH (23:04)
[2023-03-10] MEDS ORDERED: azithromycin 250mg tablet PO SCH
[2023-03-10 02:00] VITALS: BP 98/60
[2023-03-10] MEDS: temazepam 15mg capsule PO PRN (02:28)
[2023-03-10] MEDS: CefTRIAXone 2gm/D5W 50ml BAG 50 ML IV SCH (02:31)
[2023-03-10] MEDS: linezolid 600mg/300ml PREMIX 300 ML IV SCH ×2 (04:59→16:53)
[2023-03-10 06:00] VITALS: BP 118/66
[2023-03-10 06:52] LABS: ALANINE AMINOTRANSFERASE 26 U/L (12-78); ALBUMIN 1.7 G/DL (3.4-5.0); ALBUMIN/GLOBULIN RATIO 0.4 (1.1-1.5); ALKALINE PHOSPHATASE 53 IU/L (46-116); ANION GAP 7 (8-16); ASPARTATE AMINO TRANSFERASE 33 U/L (10-37); BILIRUBIN,TOTAL 0.2 MG/DL (0.1-1.0); BLOOD UREA NITROGEN 7 MG/DL (7-18); BUN/CREATININE RATIO 8.9 (10.0-20.0); CALCIUM 8.2 MG/DL (8.5-10.1); CHLORIDE 103 MMOL/L (99-107); CREATININE 0.79 MG/DL (0.40-0.90); GLUCOSE 110 MG/DL (70-104); POTASSIUM 3.7 MMOL/L (3.5-5.1); SODIUM 136 MMOL/L (135-145); TOTAL CARBON DIOXIDE 26.2 MMOL/L (24-32); TOTAL PROTEIN 5.7 G/DL (6.4-8.2); eGFR 81 ML/MIN
--- NOTE | 2023-03-10 06:57 | NUR ---
Problems reprioritized. Patient report given, questions answered & plan of care reviewed with Lourdes AVENDAÑO.
[2023-03-10 07:04] LABS: BASOPHILS % (AUTO) 0.1 % (0-1); EOSINOPHILS # (AUTO) 0.2 X10'3 (0-0.9); EOSINOPHILS % (AUTO) 2.1 % (0-6); HEMATOCRIT 28.4 % (35.0-45.0); HEMOGLOBIN 9.3 g/dl (12.0-16.0); LYMPHOCYTES # (AUTO) 0.9 X10'3 (1.1-4.8); LYMPHOCYTES % (AUTO) 9.8 % (21-51); MEAN CORPUSCULAR HEMOGLOBIN 30.2 PG (27.0-31.0); MEAN CORPUSCULAR HGB CONC 32.6 g/dL (33.0-36.5); MEAN CORPUSCULAR VOLUME 92.5 FL (78-98); MEAN PLATELET VOLUME 8.4 FL (7.4-10.4); MONOCYTES # (AUTO) 0.8 X10'3 (0-0.9); MONOCYTES % (AUTO) 9.6 % (2-12); NEUTROPHILS # (AUTO) 6.9 X10'3 (1.8-7.7); NEUTROPHILS % (AUTO) 78.4 % (42-75); PLATELET COUNT 164 X10'3 (140-440); RED BLOOD COUNT 3.07 X10'6 (4.20-5.60); RED CELL DISTRIBUTION WIDTH 14.9 % (11.5-14.5); WHITE BLOOD COUNT 8.8 X10'3 (4.5-11.0)
[2023-03-10] MEDS: HYDROmorphone 1 mg/ml syringe IV PRN (07:25)
[2023-03-10] MEDS ORDERED: furosemide 20MG tablet PO SCH (08:00)
[2023-03-10] MEDS: LIDOcaine 5% patch TP SCH (08:00)
[2023-03-10] MEDS: K and/or MAG REPLACEMENT MC SCH ×2 (08:00→20:00)
[2023-03-10 08:04] LABS: TOTAL CELLS COUNTED 100
[2023-03-10 08:06] LABS: PLATELET ESTIMATE NORMAL
[2023-03-10 08:07] LABS: BURR CELLS 1+; ELLIPTOCYTES FEW; LARGE PLATELETS FEW
[2023-03-10] MEDS: docusate sod 100mg capsule PO SCH ×2 (08:59→09:01)
[2023-03-10] MEDS: pantoprazole 40mg Tablet.DR PO SCH ×2 (08:59→09:01)
[2023-03-10] MEDS: cyclobenzaprine 10mg tablet PO PRN ×3 (08:59→22:23)
[2023-03-10] MEDS ORDERED: furosemide inj 1,000 MG in normal saline 250ml IV soln 150 ML IV SCH (10:10)
[2023-03-10 11:00] VITALS: BP 111/67
[2023-03-10] MEDS: furosemide inj 100 MG in normal saline 100ml IV soln 90 ML IV SCH (12:38)
[2023-03-10] MEDS: oxyCODONE/APAP 10/325mg tablet PO PRN (13:01)
[2023-03-10 15:00] VITALS: BP 117/61
[2023-03-10] MEDS ORDERED: furosemide 20 MG/2 ML vial IV SCH (15:00)
--- NOTE | 2023-03-10 16:23 | NUR ---
F/u 03/10: Pt now with resolved septic shock per EMR. Pt and present at bedside during time of visit. Provided verbal/ written low tryamine diet education to pt and . Pt currently on a regular diet eating minimally documented 25% x2 meals and 5 refusals. Pt reports not feeling well today and not having an appetite because she strongly dislikes the food here. States everything "taste off" especially the meat. Obtain food preferences such as no onions, no peppers, fresh fruit and hot tea with breakfast, a brandt smoothie for lunch, and an allergy to quinoa communicated with dietary. Pt also agreeable to Ensure Enlive TID, discussed with RN. Pt reports brings outside food such as starbucks drink or milk shake as pt request. LBM on 03/07 with routine bowel care per EMR. Pt already has RD contact information and encouraged pt to reach out for any nutrition questions or concerns. Will continue to follow. Recommendations: 1. Continue regular diet; encourage PO intake- food from outside per pt preference 2. Ensure Enlive chocolate TID; communicated with RN 3. [place] food preferences: fresh fruit and hot tea for breakfast, brandt smoothie for lunch 4. Routine bowel care 5. Scaled wt this admit; subsequent weekly scaled wts Addendum: 03/10/23 at 1623 by Kateryna Rosenbaum Intern RD Amended: Links added. Addendum: 03/10/23 at [address] RD I have reviewed and agree with note.
[2023-03-10] MEDS: HYDROmorphone inj. 0.5 MG/0.5 ML DISP.SYRIN IV PRN ×2 (16:55→22:23)
[2023-03-10 18:00] VITALS: BP 105/67
[2023-03-10] MEDS: albuterol 2.5 MG/3 ML nebule NEB SCH ×2 (19:05→23:31)
[2023-03-10] MEDS: oxyCODONE/APAP 5-325mg tablet PO PRN (19:52)
[2023-03-10] MEDS: enoxaparin 40mg/0.4ml syringe SQ SCH (19:53)
[2023-03-10 22:00] VITALS: BP 110/73
[2023-03-11] MEDS: CefTRIAXone 2gm/D5W 50ml BAG 50 ML IV SCH
--- NOTE | 2023-03-11 00:30 | NUR ---
IV INFILTRATED, COULD NOT ADMINISTER ANTIBIOTIC
[2023-03-11] MEDS: temazepam 15mg capsule PO PRN (02:42)
[2023-03-11] MEDS: oxyCODONE/APAP 10/325mg tablet PO PRN ×4 (03:51→21:30)
[2023-03-11] MEDS: guaiFENesin/DM 10ml UD oral syrup PO PRN ×2 (04:01→21:59)
[2023-03-11] MEDS: linezolid 600mg/300ml PREMIX 300 ML IV SCH (05:56)
[2023-03-11 06:06] VITALS: BP 92/59
[2023-03-11] MEDS: albuterol 2.5 MG/3 ML nebule NEB SCH ×5 (07:36→22:40)
[2023-03-11 07:59] LABS: BASOPHILS % (AUTO) 0.2 % (0-1); EOSINOPHILS # (AUTO) 0.1 X10'3 (0-0.9); EOSINOPHILS % (AUTO) 1.1 % (0-6); HEMATOCRIT 26.2 % (35.0-45.0); HEMOGLOBIN 8.6 g/dl (12.0-16.0); LYMPHOCYTES % (AUTO) 8.6 % (21-51); MEAN CORPUSCULAR HEMOGLOBIN 29.7 PG (27.0-31.0); MEAN PLATELET VOLUME 7.9 FL (7.4-10.4); MONOCYTES # (AUTO) 0.7 X10'3 (0-0.9); MONOCYTES % (AUTO) 6.2 % (2-12); NEUTROPHILS # (AUTO) 9.4 X10'3 (1.8-7.7); NEUTROPHILS % (AUTO) 83.9 % (42-75); PLATELET COUNT 208 X10'3 (140-440); RED BLOOD COUNT 2.91 X10'6 (4.20-5.60); WHITE BLOOD COUNT 11.2 X10'3 (4.5-11.0)
[2023-03-11 08:30] LABS: ALBUMIN 1.7 G/DL (3.4-5.0); ALBUMIN/GLOBULIN RATIO 0.4 (1.1-1.5); ANION GAP 8 (8-16); ASPARTATE AMINO TRANSFERASE 29 U/L (10-37); BILIRUBIN,TOTAL 0.2 MG/DL (0.1-1.0); BLOOD UREA NITROGEN 4 MG/DL (7-18); BUN/CREATININE RATIO 5.4 (10.0-20.0); CALCIUM 8.2 MG/DL (8.5-10.1); CHLORIDE 100 MMOL/L (99-107); CREATININE 0.74 MG/DL (0.40-0.90); GLUCOSE 123 MG/DL (70-104); MAGNESIUM 1.9 MG/DL (1.5-2.4); POTASSIUM 3.3 MMOL/L (3.5-5.1); SODIUM 137 MMOL/L (135-145); TOTAL PROTEIN 5.7 G/DL (6.4-8.2); eGFR 87 ML/MIN
[2023-03-11 08:31] LABS: ALANINE AMINOTRANSFERASE 27 U/L (12-78); ALKALINE PHOSPHATASE 62 IU/L (46-116)
[2023-03-11 08:47] LABS: PLATELET ESTIMATE NORMAL; TOTAL CELLS COUNTED 100
[2023-03-11] MEDS: K and/or MAG REPLACEMENT MC SCH ×2 (09:09→20:00)
[2023-03-11] MEDS: docusate sod 100mg capsule PO SCH ×2 (09:25→21:16)
[2023-03-11] MEDS: LIDOcaine 5% patch TP SCH (09:25)
[2023-03-11] MEDS: potassium Cl 20 mEq SR tablet PO PRN ×3 (09:25→21:30)
[2023-03-11] MEDS: magnesium hydroxide 30ml (MOM) UD suspension PO PRN (09:31)
[2023-03-11] MEDS: cyclobenzaprine 10mg tablet PO PRN (13:37)
[2023-03-11] MEDS: ondansetron/PF 4mg/2ml inj IV PRN (14:53)
[2023-03-11] MEDS: linezolid 600mg tablet PO SCH (15:46)
[2023-03-11 18:00] VITALS: BP 98/63
--- NOTE | 2023-03-11 18:44 | NUR ---
Patient in room PCU 3021. I have received report from Paulo AVENDAÑO and had the opportunity to ask questions and assume patient care.
[2023-03-11] MEDS: HYDROmorphone 1 mg/ml syringe IV PRN (19:21)
[2023-03-11] MEDS ORDERED: calcium carbonate 500mg chew tablet PO PRN (19:45)
[2023-03-11] MEDS ORDERED: famotidine 20mg tablet PO ONE (19:45)
[2023-03-11] MEDS: enoxaparin 40mg/0.4ml syringe SQ SCH (21:17)
[2023-03-11 22:00] VITALS: BP 97/51
[2023-03-11] MEDS ORDERED: albuterol 2.5 MG/3 ML nebule NEB PRN (22:55)
[2023-03-12] MEDS: CefTRIAXone 2gm/D5W 50ml BAG 50 ML IV SCH (01:00)
[2023-03-12 02:00] VITALS: BP 99/62
[2023-03-12] MEDS: HYDROmorphone 1 mg/ml syringe IV PRN ×4 (02:25→17:05)
[2023-03-12] MEDS: oxyCODONE/APAP 10/325mg tablet PO PRN ×3 (04:37→14:36)
[2023-03-12] MEDS: linezolid 600mg tablet PO SCH ×2 (04:37→16:36)
[2023-03-12 06:00] VITALS: BP 107/6
--- NOTE | 2023-03-12 06:10 | NUR ---
Patient in room PCU 3021. I have received report from Chanel AVENDAÑO and had the opportunity to ask questions and assume patient care.Pt awake and alert, very concerned that she has cancer. at bedside. Reassured pt that CA is not a DX for her. Pt C/O pain, Dilaudid 1 mg IV given. Lasix Gtt infusing @ 2ml/hr. Addendum: 03/12/23 at 4083 by Christal Guillen RN Amended: Links added.
[2023-03-12] MEDS: furosemide inj 100 MG in normal saline 100ml IV soln 90 ML IV SCH (06:13)
[2023-03-12 07:04] LABS: BASOPHILS % (AUTO) 0.2 % (0-1); EOSINOPHILS # (AUTO) 0.4 X10'3 (0-0.9); EOSINOPHILS % (AUTO) 2.7 % (0-6); LYMPHOCYTES # (AUTO) 1.1 X10'3 (1.1-4.8); LYMPHOCYTES % (AUTO) 7.5 % (21-51); MEAN CORPUSCULAR HEMOGLOBIN 30.1 PG (27.0-31.0); MEAN CORPUSCULAR HGB CONC 33.4 g/dL (33.0-36.5); MEAN CORPUSCULAR VOLUME 90.3 FL (78-98); MEAN PLATELET VOLUME 7.4 FL (7.4-10.4); MONOCYTES # (AUTO) 0.5 X10'3 (0-0.9); MONOCYTES % (AUTO) 3.6 % (2-12); NEUTROPHILS # (AUTO) 12.3 X10'3 (1.8-7.7); PLATELET COUNT 251 X10'3 (140-440); RED BLOOD COUNT 2.99 X10'6 (4.20-5.60); RED CELL DISTRIBUTION WIDTH 14.1 % (11.5-14.5); WHITE BLOOD COUNT 14.3 X10'3 (4.5-11.0)
[2023-03-12 07:12] LABS: MAGNESIUM 2.2 MG/DL (1.5-2.4)
[2023-03-12] MEDS: albuterol 2.5 MG/3 ML nebule NEB SCH ×6 (07:25→23:00)
[2023-03-12 07:39] LABS: PLATELET ESTIMATE NORMAL; TOTAL CELLS COUNTED 100
[2023-03-12] MEDS: K and/or MAG REPLACEMENT MC SCH ×2 (08:00→19:24)
[2023-03-12] MEDS: magnesium hydroxide 30ml (MOM) UD suspension PO PRN (08:23)
[2023-03-12] MEDS: LIDOcaine 5% patch TP SCH (08:25)
[2023-03-12] MEDS: pantoprazole 40mg Tablet.DR PO SCH (08:25)
[2023-03-12] MEDS: docusate sod 100mg capsule PO SCH ×2 (08:25→20:54)
[2023-03-12] MEDS: POTASSIUM BICARB 20meq eff tab 20 MEQ TABLET.EFF PO SCH (08:28)
--- NOTE | 2023-03-12 09:12 | NUR ---
Problems reprioritized. Patient report given, questions answered & plan of care reviewed with Christal AVENDAÑO.
[2023-03-12 10:43] LABS: C-REACTIVE PROTEIN 32.64 MG/DL (0.0-0.5)
[2023-03-12 11:00] VITALS: BP 104/59
[2023-03-12] MEDS: sennosides 8.6mg tablet PO SCH ×2 (11:36→20:00)
--- NOTE | 2023-03-12 14:00 | NUR ---
Bladder scan of Pt bladder showed 7 ml of urine. Post void. No strait cath needed. Addendum: 03/12/23 at 1822 by Christal Guillen RN Amended: Links added.
[2023-03-12] MEDS: cyclobenzaprine 10mg tablet PO PRN (14:36)
[2023-03-12 15:00] VITALS: BP 104/60
--- NOTE | 2023-03-12 15:09 | NUR ---
PAGER ID: [phone] MESSAGE: [phone] Luis M. Confirming that it is ok to turn off Lasix Gtt for trip to MRI and CT Scan. Christal SIFUENTES. Dr burnett called back and lasix gtt will be turned off for scans.
[2023-03-12] MEDS ORDERED: iohexol 300mg/ml 100ml inj. ONE (15:23)
[2023-03-12] MEDS: HALLS - SOOTHE MENTHOL 1.8 MG cough drop LOZENGE MM PRN (16:36)
--- NOTE | 2023-03-12 17:24 | NUR ---
PAGER ID: [phone] MESSAGE: [phone] Asencio- CT and MRI reports up. Please review. Christal SIFUENTES
[2023-03-12 18:00] VITALS: BP 103/62
--- NOTE | 2023-03-12 18:18 | NUR ---
Problems reprioritized. Patient report given, questions answered & plan of care reviewed with Sujatha AVENDAÑO. at bedside. Pt up to bathroom. Addendum: 03/12/23 at 1820 by Christal Guillen RN Amended: Links added.
--- NOTE | 2023-03-12 18:24 | NUR ---
Patient in room PCU 3021. I have received report from Christal AVENDAÑO and had the opportunity to ask questions and assume patient care.
--- NOTE | 2023-03-12 19:00 | NUR ---
Dr. Boyer here to see patient. Test results discussed w/patient and spouse. RT at bedside.
[2023-03-12] MEDS ORDERED: methylnaltrexone br 12mg/0.6ml inj***SubQ only SQ PRN (19:35)
[2023-03-12] MEDS ORDERED: magnesium hydroxide 30ml (MOM) UD suspension PO PRN (19:35)
[2023-03-12] MEDS ORDERED: furosemide inj 100 MG in normal saline 100ml IV soln 90 ML IV SCH (19:55)
[2023-03-12] MEDS: acetylcysteine 200 MG/ml 4ml vial INH SCH (20:00)
[2023-03-12] MEDS: LORazepam 0.5 MG tablet PO PRN (20:54)
[2023-03-12] MEDS: oxyCODONE/APAP 5-325mg tablet PO PRN (20:55)
[2023-03-12] MEDS: enoxaparin 40mg/0.4ml syringe SQ SCH (20:56)
[2023-03-12 22:00] VITALS: BP 106/58
[2023-03-12] MEDS: HYDROmorphone inj. 0.5 MG/0.5 ML DISP.SYRIN IV PRN (22:35)
[2023-03-12] MEDS: temazepam 15mg capsule PO PRN (22:47)
[2023-03-12] MEDS ORDERED: acetylcysteine 200 MG/ml 4ml vial INH SCH (23:00)
[2023-03-13] VITALS (7 sets, daily range): BP systolic 93–109; BP diastolic 58–73
[2023-03-13] MEDS: CefTRIAXone 2gm/D5W 50ml BAG 50 ML IV SCH (00:57)
[2023-03-13] MEDS: LORazepam 0.5 MG tablet PO PRN (03:10)
[2023-03-13] MEDS: oxyCODONE/APAP 5-325mg tablet PO PRN ×3 (03:10→16:44)
[2023-03-13] MEDS: linezolid 600mg tablet PO SCH (04:23)
[2023-03-13] MEDS: HYDROmorphone inj. 0.5 MG/0.5 ML DISP.SYRIN IV PRN ×3 (04:24→19:44)
[2023-03-13 04:34] LABS: ANION GAP 8 (8-16); BLOOD UREA NITROGEN 5 MG/DL (7-18); CHLORIDE 94 MMOL/L (99-107); CREATININE 0.89 MG/DL (0.40-0.90); GLUCOSE 97 MG/DL (70-104); SODIUM 137 MMOL/L (135-145)
[2023-03-13 04:35] LABS: ALBUMIN 1.9 G/DL (3.4-5.0); BASOPHILS % (AUTO) 0.1 % (0-1); BUN/CREATININE RATIO 5.6 (10.0-20.0); CALCIUM 9.1 MG/DL (8.5-10.1); EOSINOPHILS # (AUTO) 0.4 X10'3 (0-0.9); EOSINOPHILS % (AUTO) 2.4 % (0-6); HEMATOCRIT 27.7 % (35.0-45.0); HEMOGLOBIN 9.1 g/dl (12.0-16.0); LYMPHOCYTES # (AUTO) 1.1 X10'3 (1.1-4.8); LYMPHOCYTES % (AUTO) 7.2 % (21-51); MAGNESIUM 2.4 MG/DL (1.5-2.4); MEAN CORPUSCULAR HEMOGLOBIN 29.6 PG (27.0-31.0); MEAN CORPUSCULAR VOLUME 89.8 FL (78-98); MEAN PLATELET VOLUME 7.7 FL (7.4-10.4); MONOCYTES # (AUTO) 0.4 X10'3 (0-0.9); MONOCYTES % (AUTO) 2.8 % (2-12); NEUTROPHILS # (AUTO) 13.6 X10'3 (1.8-7.7); NEUTROPHILS % (AUTO) 87.5 % (42-75); PLATELET COUNT 334 X10'3 (140-440); RED BLOOD COUNT 3.09 X10'6 (4.20-5.60); WHITE BLOOD COUNT 15.5 X10'3 (4.5-11.0); eGFR 70 ML/MIN
--- NOTE | 2023-03-13 07:07 | NUR ---
Problems reprioritized. Patient report given, questions answered & plan of care reviewed with Brenna AVENDAÑO.
--- NOTE | 2023-03-13 07:28 | NUR ---
Patient in room PCU 3021. I have received report from KATERYNA BAHENA, and had the opportunity to ask questions and assume patient care.
[2023-03-13] MEDS: docusate sod 100mg capsule PO SCH ×2 (08:00→19:37)
[2023-03-13] MEDS: K and/or MAG REPLACEMENT MC SCH ×2 (08:00→19:46)
[2023-03-13] MEDS: LIDOcaine 5% patch TP SCH (09:16)
[2023-03-13] MEDS: pantoprazole 40mg Tablet.DR PO SCH (09:16)
[2023-03-13] MEDS: POTASSIUM BICARB 20meq eff tab 20 MEQ TABLET.EFF PO SCH (09:16)
[2023-03-13] MEDS: sennosides 8.6mg tablet PO SCH ×2 (09:16→19:37)
[2023-03-13] MEDS: albuterol 2.5 MG/3 ML nebule NEB SCH ×5 (09:21→23:00)
[2023-03-13] MEDS: acetylcysteine 200 MG/ml 4ml vial INH SCH ×2 (09:22→19:07)
--- NOTE | 2023-03-13 09:57 | NUR ---
PAGE SENT PAGER ID: [phone] MESSAGE: [phone], MAUIRCIO RIDER, PT WAS UNABLE TO LAY FLAT FOR MRI YESTERDAY, SO MRI INCOMPLETE. PER PT DR. BRYAN SAID NO MORE MRI WAS NEEDED (LUMBAR IS YET TO BE DONE). DID YOU WANT THE LUMBAR? THANK YOU. YASMIN Wild [phone]
[2023-03-13] MEDS ORDERED: CLINDAMYCIN 600mg IN NS 50ML 50 ML IV SCH (11:37)
--- NOTE | 2023-03-13 12:31 | NUR ---
PAGE SENT PAGER ID: [phone] MESSAGE: [phone], MAURICIO RIDER, DIETARY IS RECOMMENDING ENSURE FOR NUTRITION D/T POOR APETITE. AN ORDER FOR ENSURE PLEASE? THANK YOU, YASMIN [phone]
--- NOTE | 2023-03-13 12:50 | NUR ---
F/u 03/13: Pt PO remains poor 0-25% vs refusing meals now day 8 continues to not meet nutrition needs. Prior 03/[address] recs for Ensure Enlive which were d/w RN if MD agreeable not in EMR; RD paged DO and d/w RN regarding ONS recs. Pt/SO seen by RD at bedside; pt reports continued low appetite though mouth has been quite dry since started on lasix making solid food intake difficult. Pt reports is bringing in home protein drinks and endorses knowing she'll have to receive majority of kcals/proteins via liquids. Pt is still agreeable to Ensure Enlive TIDWM; pending physician orders in EMR. Pt reports wants strawberries/grapes WB since doesn't like pineapple; dietary notified. Given poor nutrition intake 8 days, mild weakness, and BLE 2+ edema pt meets minimum non-severe malnutrition criteria- DO notified. LBM 03/12 receiving routine senna, colace, and PRN MoM 03/12 per EMR. Will monitor for further nutrition intervention needs this admit. Recommendations: 1. Continue regular diet; encourage PO intake- food from outside per pt preference 2. Ensure Enlive chocolate TID; communicated w/ DO and RN 3. [place] food preferences: fresh fruit and hot tea for breakfast, brandt smoothie for lunch 4. IF poor PO persists despite Ensure Enlive intervention consider NG for nutrition repletion given malnutrition status 5. Routine bowel care 6. Scaled wt this admit; subsequent weekly scaled wts Addendum: 03/13/23 at [address] Amended: Links added.
[2023-03-13] MEDS: furosemide 20 MG/2 ML vial IV SCH ×2 (13:00→21:59)
[2023-03-13] MEDS: HYDROmorphone 1 mg/ml syringe IV PRN (13:53)
[2023-03-13] MEDS: clindamycin 600mg/D5W 50ml 50 ML IV SCH (15:59)
[2023-03-13] MEDS: lactose-reduced food (Ensure Enlive) - 237ml bottle PO SCH (18:00)
[2023-03-13] MEDS ORDERED: NUT.TX.IMPAIRED DIGEST FXN (Ensure Clear) 237 ML PO SCH (18:00)
--- NOTE | 2023-03-13 18:59 | NUR ---
Problems reprioritized. Patient report given, questions answered & plan of care reviewed with KATERYNA CARPENTER.
[2023-03-13] MEDS: famotidine 20mg tablet PO SCH (19:37)
[2023-03-13] MEDS: enoxaparin 40mg/0.4ml syringe SQ SCH (19:38)
[2023-03-13] MEDS: temazepam 15mg capsule PO PRN (21:59)
[2023-03-14] VITALS (7 sets, daily range): BP systolic 94–115; BP diastolic 53–74
[2023-03-14] MEDS: HYDROmorphone 1 mg/ml syringe IV PRN ×4 (00:10→16:21)
[2023-03-14] MEDS: clindamycin 600mg/D5W 50ml 50 ML IV SCH ×3 (00:16→16:21)
[2023-03-14] MEDS: CefTRIAXone 2gm/D5W 50ml BAG 50 ML IV SCH ×2 (01:01→23:25)
[2023-03-14] MEDS: acetaminophen 325mg tablet PO PRN ×4 (03:23→21:40)
[2023-03-14 06:13] LABS: BASOPHILS % (AUTO) 0.2 % (0-1); EOSINOPHILS # (AUTO) 0.3 X10'3 (0-0.9); EOSINOPHILS % (AUTO) 1.9 % (0-6); HEMATOCRIT 25.8 % (35.0-45.0); HEMOGLOBIN 8.7 g/dl (12.0-16.0); LYMPHOCYTES # (AUTO) 1.1 X10'3 (1.1-4.8); LYMPHOCYTES % (AUTO) 6.4 % (21-51); MEAN CORPUSCULAR HEMOGLOBIN 30.2 PG (27.0-31.0); MEAN CORPUSCULAR HGB CONC 33.7 g/dL (33.0-36.5); MEAN CORPUSCULAR VOLUME 89.7 FL (78-98); MEAN PLATELET VOLUME 7.1 FL (7.4-10.4); MONOCYTES # (AUTO) 0.5 X10'3 (0-0.9); MONOCYTES % (AUTO) 3.1 % (2-12); NEUTROPHILS # (AUTO) 14.5 X10'3 (1.8-7.7); NEUTROPHILS % (AUTO) 88.4 % (42-75); PLATELET COUNT 392 X10'3 (140-440); RED BLOOD COUNT 2.87 X10'6 (4.20-5.60); RED CELL DISTRIBUTION WIDTH 14.2 % (11.5-14.5); WHITE BLOOD COUNT 16.4 X10'3 (4.5-11.0)
[2023-03-14 06:15] LABS: ALBUMIN 1.9 G/DL (3.4-5.0); ANION GAP 9 (8-16); BLOOD UREA NITROGEN 9 MG/DL (7-18); BUN/CREATININE RATIO 10.8 (10.0-20.0); CALCIUM 8.9 MG/DL (8.5-10.1); CHLORIDE 96 MMOL/L (99-107); CREATININE 0.83 MG/DL (0.40-0.90); GLUCOSE 105 MG/DL (70-104); SODIUM 137 MMOL/L (135-145); eGFR 76 ML/MIN
--- NOTE | 2023-03-14 06:33 | NUR ---
Problems reprioritized. Patient report given, questions answered & plan of care reviewed with Brenna.
--- NOTE | 2023-03-14 06:53 | NUR ---
Patient in room PCU 3021. I have received report from KATERYNA Davey, and had the opportunity to ask questions and assume patient care. Being assisted by CHIN Zuñiga, to shower.
[2023-03-14] MEDS: acetylcysteine 200 MG/ml 4ml vial INH SCH ×2 (07:15→19:56)
[2023-03-14] MEDS: albuterol 2.5 MG/3 ML nebule NEB SCH ×5 (07:15→23:00)
[2023-03-14] MEDS: K and/or MAG REPLACEMENT MC SCH ×2 (08:00→20:00)
[2023-03-14] MEDS: lactose-reduced food (Ensure Enlive) - 237ml bottle PO SCH ×3 (08:00→18:00)
[2023-03-14] MEDS: furosemide 20 MG/2 ML vial IV SCH ×2 (09:08→12:37)
[2023-03-14] MEDS: POTASSIUM BICARB 20meq eff tab 20 MEQ TABLET.EFF PO SCH (09:08)
[2023-03-14] MEDS: pantoprazole 40mg Tablet.DR PO SCH (09:15)
[2023-03-14] MEDS: docusate sod 100mg capsule PO SCH ×2 (09:15→20:35)
[2023-03-14] MEDS: famotidine 20mg tablet PO SCH ×2 (09:15→20:36)
[2023-03-14] MEDS: sennosides 8.6mg tablet PO SCH ×2 (09:16→20:35)
[2023-03-14] MEDS: LIDOcaine 5% patch TP SCH (09:16)
[2023-03-14] MEDS: oxyCODONE/APAP 5-325mg tablet PO PRN ×2 (11:53→20:35)
[2023-03-14 12:27] LABS: LIPASE 56 U/L (73-393)
[2023-03-14 13:18] LABS: BF RBC COUNT 4 /CU MM; BF WBC COUNT 93 /CU MM (0-1000); BFAPPEAR HAZY; BFCOLOR YELLOW; BFVOLUME 60 ML
[2023-03-14 13:19] LABS: LDH,BODY FLUID 126 U/L
[2023-03-14 13:29] LABS: TOTAL PROTEIN,BODY FLUID < 2.0 G/DL
[2023-03-14] MEDS: nystatin 500,000 unit/5ML UD oral suspension PO SCH ×2 (13:30→20:36)
[2023-03-14 14:14] LABS: EOSINOPHILS,BODY FLUID 1 %; LYMPHOCYTES,BODY FLUID 39 %; MONOCYTES,BODY FLUID 43 %; NEUTROPHILS,BODY FLUID 17 %
[2023-03-14 14:15] LABS: BF MESOTHELIAL CELLS FEW
--- NOTE | 2023-03-14 15:26 | NUR ---
PAGE SENT PAGER ID: [phone] MESSAGE: [phone], MAURICIO RIDER, US DONE: SUPERFICIAL THROMBUS LEFT CEPHALIC VEIN. THANK YOU, YASMIN, [phone]
[2023-03-14] MEDS ORDERED: SINCALIDE IV ONE (17:05)
[2023-03-14] MEDS ORDERED: NORMAL SALINE IV ONE (17:05)
[2023-03-14] MEDS ORDERED: iohexol 350MG/ML 100ml bottle IV ONE (17:14)
--- NOTE | 2023-03-14 19:00 | NUR ---
Problems reprioritized. Patient report given, questions answered & plan of care reviewed with KATERYNA CARPENTER.
[2023-03-14] MEDS ORDERED: apixaban 5mg tablet PO SCH (20:00)
[2023-03-14] MEDS: temazepam 15mg capsule PO PRN (21:14)
[2023-03-15] VITALS (9 sets, daily range): BP systolic 91–108; BP diastolic 52–63
[2023-03-15] MEDS: HYDROmorphone 1 mg/ml syringe IV PRN ×3 (00:15→16:37)
[2023-03-15] MEDS: clindamycin 600mg/D5W 50ml 50 ML IV SCH ×3 (00:20→15:57)
--- NOTE | 2023-03-15 06:26 | NUR ---
Problems reprioritized. Patient report given, questions answered & plan of care reviewed with Jessica.
--- NOTE | 2023-03-15 06:55 | NUR ---
Patient in room PCU 3021. I have received report from KATERYNA CARPENTER, and had the opportunity to ask questions and assume patient care.
[2023-03-15] MEDS: albuterol 2.5 MG/3 ML nebule NEB SCH ×5 (07:00→23:30)
[2023-03-15 07:18] LABS: BASOPHILS % (AUTO) 0.3 % (0-1); EOSINOPHILS # (AUTO) 0.2 X10'3 (0-0.9); EOSINOPHILS % (AUTO) 1.9 % (0-6); HEMATOCRIT 28.5 % (35.0-45.0); HEMOGLOBIN 9.4 g/dl (12.0-16.0); LYMPHOCYTES # (AUTO) 1.4 X10'3 (1.1-4.8); LYMPHOCYTES % (AUTO) 11.9 % (21-51); MEAN CORPUSCULAR HEMOGLOBIN 29.7 PG (27.0-31.0); MEAN CORPUSCULAR VOLUME 89.9 FL (78-98); MEAN PLATELET VOLUME 6.8 FL (7.4-10.4); MONOCYTES # (AUTO) 0.3 X10'3 (0-0.9); NEUTROPHILS # (AUTO) 9.6 X10'3 (1.8-7.7); NEUTROPHILS % (AUTO) 82.9 % (42-75); PLATELET COUNT 466 X10'3 (140-440); RED BLOOD COUNT 3.17 X10'6 (4.20-5.60); RED CELL DISTRIBUTION WIDTH 14.3 % (11.5-14.5); WHITE BLOOD COUNT 11.6 X10'3 (4.5-11.0)
[2023-03-15 07:29] LABS: ALBUMIN 2.2 G/DL (3.4-5.0); ANION GAP 8 (8-16); BLOOD UREA NITROGEN 11 MG/DL (7-18); BUN/CREATININE RATIO 12.9 (10.0-20.0); CALCIUM 9.2 MG/DL (8.5-10.1); CHLORIDE 97 MMOL/L (99-107); CREATININE 0.85 MG/DL (0.40-0.90); GLUCOSE 91 MG/DL (70-104); SODIUM 134 MMOL/L (135-145); TOTAL CARBON DIOXIDE 28.7 MMOL/L (24-32); eGFR 74 ML/MIN
[2023-03-15] MEDS: K and/or MAG REPLACEMENT MC SCH ×2 (08:00→19:59)
[2023-03-15] MEDS: lactose-reduced food (Ensure Enlive) - 237ml bottle PO SCH ×3 (08:00→18:00)
[2023-03-15] MEDS: docusate sod 100mg capsule PO SCH ×2 (08:17→20:03)
[2023-03-15] MEDS: POTASSIUM BICARB 20meq eff tab 20 MEQ TABLET.EFF PO SCH (08:17)
[2023-03-15] MEDS: LIDOcaine 5% patch TP SCH (08:17)
[2023-03-15] MEDS: sennosides 8.6mg tablet PO SCH ×2 (08:17→20:03)
[2023-03-15] MEDS: nystatin 500,000 unit/5ML UD oral suspension PO SCH ×3 (08:17→20:04)
[2023-03-15] MEDS: famotidine 20mg tablet PO SCH ×2 (08:17→20:03)
[2023-03-15] MEDS: furosemide 20 MG/2 ML vial IV SCH ×2 (08:18→20:07)
[2023-03-15] MEDS: pantoprazole 40mg Tablet.DR PO SCH (08:18)
[2023-03-15] MEDS: acetylcysteine 200 MG/ml 4ml vial INH SCH (08:18)
[2023-03-15] MEDS: oxyCODONE/APAP 5-325mg tablet PO PRN (08:24)
[2023-03-15] MEDS ORDERED: LIDOcaine 1% 30ml preserv. free vial ONE (12:28)
[2023-03-15] MEDS ORDERED: fentaNYL/PF 50MCG/1 ML 2ML syringe ONE (12:36)
[2023-03-15] MEDS ORDERED: midazolam 1 mg/ML 2ml injection ONE (12:36)
--- NOTE | 2023-03-15 14:42 | NUR ---
RT at bedside, Becca AVENDAÑO
--- NOTE | 2023-03-15 15:10 | NUR ---
Pt family at bedside. Pt given ice for back pain. Becca AVENDAÑO
--- NOTE | 2023-03-15 15:27 | NUR ---
Page Sent PAGER ID: [phone] MESSAGE: [phone] Callie Asencio, Pt expressed concern about lack of coverage for a fever. Pt requesting Advil. Please advise, thank you. Becca AVENDAÑO [phone]
[2023-03-15] MEDS ORDERED: ibuprofen tablet 400 MG TABLET PO PRN (15:30)
--- NOTE | 2023-03-15 15:31 | NUR ---
Dr Rios called and gave verbal order for Ibuprofen 600 mg, Q6 PRN for fever, Becca AVENDAÑO
--- NOTE | 2023-03-15 16:07 | NUR ---
Page Sent PAGER ID: [phone] MESSAGE: [phone] Luis M Ledesma. Pt concerned about pain coverage. Percocet was ineffective this morning. Pt is concerned about pain management upon discharge and finding meds that works before she leaves. Please advise, thank you. KATERYNA Hudson [phone]
[2023-03-15] MEDS ORDERED: HYDROcodone/acetaminophen 10/325mg tab PO PRN (16:15)
--- NOTE | 2023-03-15 16:18 | NUR ---
Dr Rios called. He will discontinue the order for Percocet and put in an order for Dunbar 10mg. KATERYNA Hudson
--- NOTE | 2023-03-15 18:36 | NUR ---
Problems reprioritized. Patient report given, questions answered & plan of care reviewed with KATERYNA CARPENTER.
[2023-03-15] MEDS: temazepam 15mg capsule PO PRN (22:05)
[2023-03-15] MEDS: ibuprofen 200mg tablet PO PRN (22:06)
[2023-03-15] MEDS: levoFLOXACIN-Levaquin 750MG/D5 150 ML IV SCH (22:18)
[2023-03-16] MEDS: linezolid 600mg/300ml PREMIX 300 ML IV SCH ×2 (00:15→11:11)
[2023-03-16] MEDS: LORazepam 0.5 MG tablet PO PRN (00:29)
[2023-03-16 00:33] VITALS: BP 99/64
[2023-03-16 02:00] VITALS: BP 101/64
--- NOTE | 2023-03-16 06:46 | NUR ---
Patient in room PCU 3021. I have received report from KATERYNA Tong and had the opportunity to ask questions and assume patient care.
--- NOTE | 2023-03-16 06:47 | NUR ---
Problems reprioritized. Patient report given, questions answered & plan of care reviewed with Rafita.
[2023-03-16 06:48] VITALS: BP 106/67
[2023-03-16] MEDS: albuterol 2.5 MG/3 ML nebule NEB SCH ×2 (07:00→11:08)
--- NOTE | 2023-03-16 07:23 | NUR ---
attempted to administer morning meds to patient. patient states wanting to wait until after breakfast as she had not fallen asleep until 3am. will try agian.
[2023-03-16 07:33] LABS: BASOPHILS # (AUTO) 0.1 X10'3 (0-0.2); BASOPHILS % (AUTO) 0.4 % (0-1); EOSINOPHILS # (AUTO) 0.2 X10'3 (0-0.9); EOSINOPHILS % (AUTO) 1.8 % (0-6); HEMATOCRIT 27.9 % (35.0-45.0); HEMOGLOBIN 9.3 g/dl (12.0-16.0); LYMPHOCYTES # (AUTO) 1.5 X10'3 (1.1-4.8); LYMPHOCYTES % (AUTO) 12.5 % (21-51); MEAN CORPUSCULAR HEMOGLOBIN 29.5 PG (27.0-31.0); MEAN CORPUSCULAR HGB CONC 33.2 g/dL (33.0-36.5); MEAN CORPUSCULAR VOLUME 88.8 FL (78-98); MEAN PLATELET VOLUME 7.1 FL (7.4-10.4); MONOCYTES # (AUTO) 0.6 X10'3 (0-0.9); NEUTROPHILS # (AUTO) 9.5 X10'3 (1.8-7.7); NEUTROPHILS % (AUTO) 80.3 % (42-75); PLATELET COUNT 521 X10'3 (140-440); RED BLOOD COUNT 3.14 X10'6 (4.20-5.60); WHITE BLOOD COUNT 11.8 X10'3 (4.5-11.0)
[2023-03-16 07:59] LABS: ALBUMIN 2.2 G/DL (3.4-5.0); ANION GAP 9 (8-16); BLOOD UREA NITROGEN 12 MG/DL (7-18); CHLORIDE 97 MMOL/L (99-107); CREATININE 0.92 MG/DL (0.40-0.90); GLUCOSE 93 MG/DL (70-104); POTASSIUM 4.3 MMOL/L (3.5-5.1); SODIUM 133 MMOL/L (135-145); TOTAL CARBON DIOXIDE 27.1 MMOL/L (24-32); eGFR 68 ML/MIN
[2023-03-16] MEDS: K and/or MAG REPLACEMENT MC SCH (08:00)
[2023-03-16] MEDS: lactose-reduced food (Ensure Enlive) - 237ml bottle PO SCH (08:00)
[2023-03-16] MEDS: sennosides 8.6mg tablet PO SCH (08:57)
[2023-03-16] MEDS: POTASSIUM BICARB 20meq eff tab 20 MEQ TABLET.EFF PO SCH (08:57)
[2023-03-16] MEDS: nystatin 500,000 unit/5ML UD oral suspension PO SCH (08:57)
[2023-03-16] MEDS: pantoprazole 40mg Tablet.DR PO SCH (08:57)
[2023-03-16] MEDS: docusate sod 100mg capsule PO SCH (08:57)
[2023-03-16] MEDS: famotidine 20mg tablet PO SCH (08:57)
[2023-03-16] MEDS: levoFLOXACIN-Levaquin 750MG/D5 150 ML IV SCH (08:58)
[2023-03-16] MEDS: furosemide 20 MG/2 ML vial IV SCH (08:58)
[2023-03-16] MEDS: HALLS - SOOTHE MENTHOL 1.8 MG cough drop LOZENGE MM PRN (10:10)
[2023-03-16] MEDS: ibuprofen 200mg tablet PO PRN (10:15)
[2023-03-16 12:01] VITALS: BP 96/62
[2023-03-16] MEDS ORDERED: LINE600T12 PO (13:53)
[2023-03-16] MEDS ORDERED: LEVO-65 PO (13:53)
--- NOTE | 2023-03-16 15:00 | NUR ---
patient alert and oriented in no apparent acute distress. no complaints at this time. patient spouse at bedside. discussed with patient discharge instructions and new prescriptions. Patient verbalize understanding of teaching and stated no questions.
--- NOTE | 2023-03-16 16:37 | NUR ---
patient dc'd with all personal belongings accompanied by spouse. patient alert and oriented at time of dc with no complaints.
== END 2023-03-16 15:15 | disposition home or self-care (01) | DRG 871 ==
LOC: ER 13:47 → UNDOADMIN 17:00 → ED HOLD 17:00 → UNDOADMIN 23:58 → ED HOLD 23:58 → ICU 2S 03-06 17:12 → PCU 3S 03-07 19:30
PROVIDERS: ADMIT Internal Medicine; ATTEND Internal Medicine
PROC: B32T1ZZ Computerized Tomography (CT Scan) of Left Pulmonary Artery using Low Osmolar Contrast (ICD-10-PCS; 2023-03-05)
PROC: B3201ZZ Computerized Tomography (CT Scan) of Thoracic Aorta using Low Osmolar Contrast (ICD-10-PCS; 2023-03-05)
PROC: B32S1ZZ Computerized Tomography (CT Scan) of Right Pulmonary Artery using Low Osmolar Contrast (ICD-10-PCS; 2023-03-05)
PROC: B4201ZZ Computerized Tomography (CT Scan) of Abdominal Aorta using Low Osmolar Contrast (ICD-10-PCS; 2023-03-05)
PROC: 5A0935A Assistance with Respiratory Ventilation, Less than 24 Consecutive Hours, High Flow/Velocity Cannula (ICD-10-PCS; principal; 2023-03-06)
PROC: BW241ZZ Computerized Tomography (CT Scan) of Chest and Abdomen using Low Osmolar Contrast (ICD-10-PCS; 2023-03-08)
PROC: BW211ZZ Computerized Tomography (CT Scan) of Abdomen and Pelvis using Low Osmolar Contrast (ICD-10-PCS; 2023-03-12)
PROC: B32T1ZZ Computerized Tomography (CT Scan) of Left Pulmonary Artery using Low Osmolar Contrast (ICD-10-PCS; 2023-03-14)
PROC: B3201ZZ Computerized Tomography (CT Scan) of Thoracic Aorta using Low Osmolar Contrast (ICD-10-PCS; 2023-03-14)
PROC: B32S1ZZ Computerized Tomography (CT Scan) of Right Pulmonary Artery using Low Osmolar Contrast (ICD-10-PCS; 2023-03-14)
PROC: 0W9B3ZX Drainage of Left Pleural Cavity, Percutaneous Approach, Diagnostic (ICD-10-PCS; 2023-03-14)
DX: A41.9 Sepsis, unspecified organism (principal); E43 Unspecified severe protein-calorie malnutrition; J96.01 Acute respiratory failure with hypoxia; R65.21 Severe sepsis with septic shock; N17.0 Acute kidney failure with tubular necrosis; J86.9 Pyothorax without fistula; J18.1 Lobar pneumonia, unspecified organism; J90 Pleural effusion, not elsewhere classified; J81.1 Chronic pulmonary edema; Z20.822 Contact with and (suspected) exposure to COVID-19; M54.6 Pain in thoracic spine; M62.830 Muscle spasm of back; G89.29 Other chronic pain; M54.9 Dorsalgia, unspecified; G47.9 Sleep disorder, unspecified; S23.3XXA Sprain of ligaments of thoracic spine, initial encounter; X58.XXXA Exposure to other specified factors, initial encounter; N18.9 Chronic kidney disease, unspecified; F41.9 Anxiety disorder, unspecified; F32.A Depression, unspecified; E87.70 Fluid overload, unspecified; R10.13 Epigastric pain; D64.9 Anemia, unspecified; I80.8 Phlebitis and thrombophlebitis of other sites; D69.59 Other secondary thrombocytopenia; E87.6 Hypokalemia; K21.9 Gastro-esophageal reflux disease without esophagitis; R13.10 Dysphagia, unspecified; Z88.1 Allergy status to other antibiotic agents; Z88.8 Allergy status to other drugs, medicaments and biological substances; Z79.899 Other long term (current) drug therapy; Y93.89 Activity, other specified; Y92.89 Other specified places as the place of occurrence of the external cause; Y99.8 Other external cause status; Z68.20 Body mass index [BMI] 20.0-20.9, adult; K59.03 Drug induced constipation; T40.2X5A Adverse effect of other opioids, initial encounter; Y92.230 Patient room in hospital as the place of occurrence of the external cause
CPT/HCPCS: 32555; 36415; 36600; 71045; 71250; 71260; 71275; 72146; 74177; 76700; 80048; 80053; 80202; 81001; 81025; 82803; 82948; 83605; 83615; 83690; 83735; 84132; 84145; 84157; 84484; 85007; 85018; 85025; 85651; 86140; 87040; 87070; 87075; 87081; 87502; 87503; 87811; 89051; 93005; 93306; 93971; 94640; 94664; 94668; 94760; 99285; A4421; A4615; A4620; A6213; A6253; A6258; C1729; C1751; C1758; C1769; G0378; J0456; J0696; J1170; J1650; J1885; J1940; J1956; J2020; J2060; J2250; J2270; J2405; J2930; J3010; J3370; J3480; J3490; J7030; J7040; Q9967

== ENCOUNTER 2023-03-23 13:26 | Outpatient (CLI) | payer BC ==
[~2023-03-23 13:26] MED LIST changes: +LEVO-65 PO; +LINE600T12 PO
== END 2023-03-23 23:59 | disposition home or self-care (01) ==
LOC: RAD 13:26
PROVIDERS: ATTEND Internal Medicine Infectious Disease
DX: J18.9 Pneumonia, unspecified organism (principal); J98.4 Other disorders of lung
CPT/HCPCS: 71046

== ENCOUNTER 2023-04-06 14:19 | Outpatient (CLI) | payer BC ==
[~2023-04-06 14:19] MED LIST changes: -LEVO-65 PO; -LINE600T12 PO
== END 2023-04-06 23:59 | disposition home or self-care (01) ==
LOC: RAD 14:19
PROVIDERS: ATTEND Internal Medicine Infectious Disease
DX: J18.9 Pneumonia, unspecified organism (principal); J98.4 Other disorders of lung
CPT/HCPCS: 71046

== ENCOUNTER 2023-04-19 10:35 | Outpatient (CLI) | payer BC ==
[2023-04-19 12:11] LABS: RHEUM FACTOR QUAL REFLEX TITER NEGATIVE (Neg)
== END 2023-04-19 23:59 | disposition home or self-care (01) ==
LOC: LAB 10:35
PROVIDERS: ATTEND Nurse Practitioner
DX: M54.9 Dorsalgia, unspecified (principal)
CPT/HCPCS: 36415; 86430

== ENCOUNTER 2023-08-08 15:33 | Day surgery (SDC) | payer BC ==
[~2023-08-08] VITALS: Ht 157.5 cm; Wt 54.5 kg
[2023-08-08] MEDS ORDERED: LIDOcaine Viscous 15ml cup ONE (15:59)
[2023-08-08] MEDS ORDERED: MIDAZolam 1 MG/ML 5ML VIAL ONE (15:59)
[2023-08-08] MEDS ORDERED: fentaNYL/PF 50MCG/1 ML 2ML syringe ONE (15:59)
[2023-08-08 16:06] VITALS: BP 113/82; PULSE 78; RESP 19
[2023-08-08 16:44] VITALS: BP 104/70; PULSE 79; RESP 13; O2SAT 91
[2023-08-08 16:54] VITALS: BP 101/65; PULSE 67; RESP 14; O2SAT 97
[2023-08-08 17:04] VITALS: BP 105/70; PULSE 73; RESP 12; O2SAT 95
[2023-08-08 17:14] VITALS: BP 102/62; PULSE 64; RESP 49; O2SAT 96
== END 2023-08-08 17:25 | disposition home or self-care (01) ==
LOC: GI LAB 15:33
PROVIDERS: ATTEND Internal Medicine Gastroenterology
DX: R11.2 Nausea with vomiting, unspecified (principal); R76.8 Other specified abnormal immunological findings in serum; K31.7 Polyp of stomach and duodenum; Z98.890 Other specified postprocedural states
CPT/HCPCS: 43239; 99152; J2250; J3010; J7030; Z7512; A4620